=== PATIENT | female | born 1955 | race Caucasian/White ===

== ENCOUNTER 2018-05-01 10:58 | Observation (INO) ==
--- NOTE | 2018-05-01 11:13 | Emergency Department Note ---
ED Disposition Clinical Impression: Acute exacerbation of chronic obstructive airways disease, Acute and chronic respiratory failure with hypercapnia Community acquired pneumonia Qualifiers: Laterality: right Lung location: upper lobe of lung Qualified Code(s): J18.1 - Lobar pneumonia, unspecified organism Disposition: Admitted as Observation Condition on Discharge: Fair Instructions: DI for Altered Mental Status Referrals: Alejandro Figueroa MD [Primary Care Provider] - Time of Disposition: 13:10 - Critical Care Critical Care Time: No Attestation: On , the high probability of a clinically significant, sudden or life threatening deterioration of the following system(s) required my full and direct attention, intervention and personal management. The time I documented below is in addition to time spent performing reported procedures but includes the following listed in this critical care notation. Medical Decision Making - Medical Records Medical records reviewed: Yes: I reviewed the patient's medical records. - Eleno Inquiry Pt receiving controlled substance: No Eleno was queried for this patient: No Vital Signs: 05/01/18 11:01 05/01/18 11:31 05/01/18 12:01 Temperature 98.7 F Temperature Source Oral Pulse Rate [Right Radial] 76 67 75 Respiratory Rate 28 H 18 18 Blood Pressure [Right Arm] 105/61 105/61 100/61 Blood Pressure Mean [Right Arm] 75 75 74 Blood Pressure Source [Right Arm] Automatic Cuff Automatic Cuff Automatic Cuff Blood Pressure Position [Right Arm] Sitting Sitting Sitting 02 Sat by Pulse Oximetry 98 94 L 93 L Oxygen Delivery Method Nasal Cannula Nasal Cannula Nasal Cannula Oxygen Flow Rate (LPM) 3 3 05/01/18 12:46 05/01/18 13:03 Temperature Temperature Source Pulse Rate [Right Radial] 80 76 Respiratory Rate 18 20 Blood Pressure [Right Arm] 136/60 129/59 Blood Pressure Mean [Right Arm] 85 82 Blood Pressure Source [Right Arm] Automatic Cuff Automatic Cuff Blood Pressure Position [Right Arm] Sitting Sitting 02 Sat by Pulse Oximetry 94 L 90 L Oxygen Delivery Method Nasal Cannula Nasal Cannula Oxygen Flow Rate (LPM) 3 3 - Lab Data Lab results reviewed: Yes: I reviewed the patient's lab results. Lab Results 05/01/18 11:29: Specimen Source Right brachial, O2 % 28%, ABG pH 7.26 L, ABG pCO2 93.9 H, ABG pO2 67.3 L, ABG HCO3 41.2 H, ABG Total CO2 44.1 H, ABG O2 Saturation 94, ABG Base Excess 14.1 H, Aaron Test Non applicable 05/01/18 11:35: WBC 11.7 H, RBC 3.67 L, Hgb 11.5 L, Hct 39.7, MCV 108.2 H, MCH 31.4 H, MCHC 29.0 L, RDW 14.7, Plt Count 138 L, MPV 8.3, Neut % (Auto) 88.3 H, Lymph % (Auto) 6.8 L, [place] % (Auto) 3.5, Eos % (Auto) 1.1, Baso % (Auto) 0.3, Neut # (Auto) 10.3 H, Lymph # (Auto) 0.8, [place] # (Auto) 0.4, Eos # (Auto) 0.1, Baso # (Auto) 0.0, Total Counted 100, Neutrophils % (Manual) 85 H, Band Neutrophils % 2.0, Lymphocytes % (Manual) 10, Monocytes % (Manual) 3, Platelet Estimate Slight decrease, Hypochromasia 1+, Macrocytosis 2+ 05/01/18 11:35: Sodium 139, Potassium 4.7, Chloride 95 L, Carbon Dioxide 43 H*, Anion Gap 5.7, BUN 17, Creatinine 1.06 H, Estimated Creat Clear 79, Estimated GFR 53 L, Est GFR ( Amer) 64, Glucose 130 H, Calcium 8.7, Total Bilirubin 0.4, AST 15, ALT 17, Alkaline Phosphatase 131 H, Troponin I < 0.02, Total Protein 7.3, Albumin 3.2 L, Globulin 4.1 H, Albumin/Globulin Ratio 0.8 L 05/01/18 11:35: Lactic Acid 1.2 Result diagrams: 05/01/18 11:35 05/01/18 11:35 Orders (Tests/Meds): ED MEDICATIONS Generic Name Dose Route Start Last Admin Trade Name Freq PRN Reason Stop Dose Admin Levofloxacin/Dextrose 500 mg in 100 mls @ 100 mls/hr 05/01/18 13:00 Levaquin 500mg/100ml Premix IV 05/15/18 12:59 Q24H BENNY Protocol Sodium Chloride 3 ml 05/01/18 11:12 Sodium Chloride 3% 15ml Neb IH 05/31/18 11:11 ONCE PRN INDUCE SPUTUM COLLECTION Discontinued Medications Generic Name Dose Route Start Last Admin Trade Name Guido PRN Reason Stop Dose Admin Methylprednisolone Sodium Succinate 125 mg 05/01/18 12:56 Solu-Medrol 125mg/2ml Vial IM 05/01/18 12:57 ONCE ONE Methylprednisolone Sodium Succinate 125 mg 05/01/18 13:05 Solu-Medrol 125mg/2ml Vial IV 05/01/18 13:06 ONCE ONE ORDERS Category Date Time Status XR chest portable Stat Exams 05/01/18 11:12 Taken Blood Culture Stat Micro 05/01/18 11:35 Received Sputum Culture & Gram Stain Stat Micro 05/01/18 11:12 Results ABG [Arterial Blood Gas] Stat RT 05/01/18 12:38 Ordered EKG Request [ECG Request by /Sukhdeep] Stat Y 05/01/18 11:19 Ordered - Radiology Data #1 Image(s): Chest Image Reviewed: Yes I reviewed the patient's radiology results, Yes I discussed the image results w/the radiologist, Yes I have reviewed radiologist's interpretation, Yes I reviewed the patient's radiology image w/the ED provider RUL infiltrate #2 Image(s): Ankle Image Reviewed: Yes I reviewed the patient's radiology results, Yes I reviewed the patient's radiology image, Yes I discussed the image results w/the radiologist, Yes I have reviewed radiologist's interpretation, Yes I reviewed the patient's radiology image w/the ED provider Preliminary Findings: Normal/NAD - CT Data CT Scan: Head Time Received: 13:[address] Reviewed: Yes: I have reviewed the patient's CT results, I discussed the CT results w/the radiologist, I have viewed the radiologist's interpretation Preliminary Findings: Normal/NAD Altered Mental Status HPI - General Chief Complaint: Altered Mental Status Stated Complaint: soa and ams x2 days, fell off toilet Time Seen by Provider: 05/01/18 11:06 - History of Present Illness HPI narrative: Brought to the ED by EMS with history that she has been falling at least twice over the past few days and according to the Family has been disoriented as well. She has a productive cough and history of COPD and continues to smoke about a ppd. She is on home O2 at 3L/min NC and uses Nebs TID and inhalers as well. 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 She is coughing up some purulent sputum and complains of pain in her right ankle and around her navel but denies any nausea, vomiting or diarrhea. Pt is emphatic that she is a DNR - Related Data Home Medications Medication Instructions Recorded Confirmed Gabapentin [Neurontin 600mg 600 mg PO TID 05/01/18 05/01/18 tablet] Isosorbide Mononitrate [Imdur 60mg 60 mg PO DAILY 05/01/18 05/01/18 ER tablet] Metoprolol Tartrate [Lopressor 25 mg PO BID 05/01/18 05/01/18 25mg tablet] Omeprazole [Omeprazole 20mg Tab] 20 mg PO DAILY 05/01/18 05/01/18 Spironolactone 25 mg PO BID 05/01/18 05/01/18 Venlafaxine HCl [Venlafaxine HCl 75 mg PO DAILY 05/01/18 05/01/18 ER] levETIRAcetam [Levetiracetam] 500 mg PO BID 05/01/18 05/01/18 Allergies Allergy/AdvReac Type Severity Reaction Status Date / Time amoxicillin [From Augmentin] Allergy Mild NA-NAUSEA/V Verified 05/01/18 11:11 OMITING clavulanic acid Allergy Mild NA-NAUSEA/V Verified 05/01/18 11:11 [From Augmentin] OMITING clindamycin [CLINDAMYCIN] Allergy Unknown Verified 05/01/18 11:11 [facility] History I have reviewed the patient's past medical history: Yes ROS Obtained: Yes All systems reviewed & no additional complaints - Constitutional Constitutional: Reports system reviewed and no additional complaints, except as docu - ENT Ears, Nose, Mouth, and Throat: Reports system reviewed and no additional complaints, except as docu - Cardiovascular Cardiovascular: Reports system reviewed and no additional complaints, except as docu - Respiratory Respiratory: Yes as per HPI - Gastrointestinal Gastrointestingal: Reports: system reviewed and no additional complaints, except as docu, as per HPI - Musculoskeletal Musculoskeletal: Reports system reviewed and no additional complaints, except as docu, Reports as per HPI - Neurologic Neurologic: Reports system reviewed and no additional complaints, except as docu , Reports as per HPI Physical Exam - General General appearance: other (appears to be SOA and coughing a lot but is oriented to place and time at this time) - Head Head exam: atraumatic - Eye Eye exam: Present: normal appearance - Neck Neck exam: Present: normal inspection - Chest Chest inspection: Present: normal inspection - Respiratory Respiratory exam: Present: wheezes, other (? Rales in LLL) - Cardiovascular Cardiovascular exam: Present: regular rate - Abdominal Exam Abdominal exam: Present: soft - Extremities Exam Extremities exam: Present: other (bruising and swelling of right ankle) - Neurological Exam Neurological exam: Present: other (mild confusion but does know she is at this hospital)
[2018-05-01 11:47] LABS: Basophils % 0.3 % (0.1-2.0); Eosinophils # 0.1 K/mm3 (0.0-0.4); Eosinophils % 1.1 % (0.1-12.0); Hematocrit 39.7 % (37.0-47.0); Hemoglobin 11.5 g/dL (12.2-16.2); Lymphocytes # 0.8 K/mm3 (0.7-4.5); Lymphocytes % 6.8 K/mm3 (10-50); Mean Corpuscular Hemoglobin 31.4 pg (27.0-31.2); Mean Corpuscular Volume 108.2 fl (81-99); Mean Platelet Volume 8.3 fl (7.4-10.4); Monocytes # 0.4 K/mm3 (0.1-1.0); Monocytes % 3.5 % (1.7-9.3); Neutrophils # 10.3 K/mm3 (1.8-7.8); Neutrophils % 88.3 % (37.0-80.0); Platelet Count 138 K/mm3 (142-424); Red Blood Count 3.67 M/mm3 (4.20-5.40); Red Cell Distribution Width 14.7 % (11.5-17.5); White Blood Count 11.7 K/mm3 (4.8-10.8)
[2018-05-01 12:03] LABS: Alanine Aminotransferase 17 U/L (12-78); Albumin Level 3.2 gm/dL (3.4-5.0); Albumin/Globulin Ratio 0.8 (1.1-1.8); Alkaline Phosphatase 131 U/L (46-116); Anion Gap 5.7 mEq/L (5-15); Aspartate Amino Transferase 15 U/L (15-37); Bilirubin,Total 0.4 mg/dL (0.2-1.0); Blood Urea Nitrogen 17 mg/dL (7-18); Calcium 8.7 mg/dL (8.5-10.1); Chloride 95 mmol/L (98-107); Globulin 4.1 gm/dl (1.3-3.2); Glucose 130 mg/dL (74-106); Potassium 4.7 mmoL/L (3.5-5.1); Sodium 139 mmol/L (136-145); Total Protein,Serum 7.3 gm/dL (6.4-8.2)
[2018-05-01 12:05] LABS: Carbon Dioxide 43 mmol/L (21.0-32.0)
[2018-05-01 12:16] LABS: Lymphocytes % 10 % (10-50); Monocytes % 3 % (2-9); Neutrophils % 85 % (42-76); Total Cells Counted 100
[2018-05-01 12:18] LABS: Macrocytosis 2+
[2018-05-01 12:19] LABS: Hypochromasia 1+
[2018-05-01 12:27] LABS: ABG Base Excess 14.1 mmol/L (-2.4-2.3); ABG HCO3 41.2 mmhg (22.0-26.0); ABG Oxygen Saturation 94 % (90-100); ABG PH 7.26 mmol/L (7.35-7.45); ABG PO2 67.3 mmhg (80-100); ABG TCO2 44.1 mmhg (23-27)
[2018-05-01 12:31] LABS: Allen's Test Non Applicable; Oxygen 28% %
[2018-05-01 12:32] LABS: ABG PCO2 93.9 mmhg (35.0-45.0)
--- NOTE | 2018-05-01 14:22 | Pharmacy Consult Notes ---
[facility] Pharmacy VTE Monitoring - Patient Demographics Admission date: 05/01/18 Report Date: 05/01/18 Time: 14:22 Allergies/Adverse Reactions: Patient Allergies amoxicillin [From Augmentin] Allergy (Mild, Verified 05/01/18 11:11) NA-NAUSEA/VOMITING clavulanic acid [From Augmentin] Allergy (Mild, Verified 05/01/18 11:11) NA-NAUSEA/VOMITING clindamycin [CLINDAMYCIN] Allergy (Unknown, Verified 05/01/18 11:11) Height: 1.8 m Weight: 245.082 kg Patient Problems: Current Active Problems Acute exacerbation of chronic obstructive airways disease (Acute) Acute and chronic respiratory failure with hypercapnia (Acute) Community acquired pneumonia (Acute) - VTE Risk Labs: VTE Related Lab Results Hgb 11.5 g/dL (12.2-16.2) L 05/01/18 11:35 Hct 39.7 % (37.0-47.0) 05/01/18 11:35 Plt Count 138 K/mm3 (142-424) L 05/01/18 11:35 BUN 17 mg/dL (7-18) 05/01/18 11:35 Creatinine 1.06 mg/dL (0.55-1.02) H 05/01/18 11:35 Estimated Creat Clear 79 mL/min (0-300) 05/01/18 11:35 - Prophylaxis VTE Prophylaxis Ordered?: Yes Types of VTE Prophylaxis: TEDS Knee High Location of Applied Device: Bilateral Lower Extremeties - VTE Diagnosis Confirmed Treatment or plan recommended: Continue Current Treatment
[2018-05-01 15:15] LABS: ABG Base Excess 18.1 mmol/L (-2.4-2.3); ABG HCO3 43.9 mmhg (22.0-26.0); ABG Oxygen Saturation 88 % (90-100); ABG PH 7.34 mmol/L (7.35-7.45); ABG TCO2 46.5 mmhg (23-27)
[2018-05-01 15:25] LABS: Allen's Test Non Applicable; Oxygen 32% %; Tidal Volume vapothrem 40
[2018-05-01 15:26] LABS: ABG PCO2 84.1 mmhg (35.0-45.0); ABG PO2 48.6 mmhg (80-100)
--- NOTE | 2018-05-01 15:50 | History & Physical Report ---
*Admission Date: 05/01/18 <Tatiana Silva 05/01/18 16:02> *Chief complaint: SOA, cough <Tatiana Silva 05/01/18 16:02> *History of present illness: Ms. 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 She continues to smoke approx. a pack a day. She began getting more SOA 5 days ago and fell at home. She then developed a cough with green sputum. She gradually got worse and fell off of the commode today and her was unable to get her up and had to call 911. She was transported to the ER and found to have a pneumonia, hypoxia, and hypercapnia. She was admitted and started on abx and the vapotherm for CO2 retention. <Tatiana Silva 05/01/18 16:02> [facility] History Medical History: Reports:: Chronic Obstructive Pulmonary Disease (COPD), Depression, Home Oxygen, Hyperlipidemia, Hypertension, Seizures Denies:: Diabetes Mellitus Type 1, Diabetes Mellitus Type 2 <Tatiana Silva 05/01/18 16:02> Laterality Cases: Bilateral: Cataract <Tatiana Silva 05/01/18 16:02> Other Surgeries: Yes: Appendectomy, Cardiac Catheterization (normal), Cholecystectomy, Hysterectomy-Total, Tubal Ligation <Tatiana Silva 05/01/18 16:02> Comment: Breast bx, neck surgery <Tatiana Silva 05/01/18 16:02> - *Social History Smoking Status: Current every day smoker <Tatiana Silva 05/01/18 16:02> Tobacco Type: cigarettes <Tatiana Silva 05/01/18 16:02> # Packs/Day (cigarettes): 1 <Tatiana Silva 05/01/18 16:02> Alcohol Intake: never <Tatiana Silva 05/01/18 16:02> - Psychiatric History Expresses thoughts of harming self/others: None <Tatiana Silva 05/01/18 16: 02> Suicide Plan Description: No Plan <Tatiana Silva 05/01/18 16:02> Review of Systems - Constitutional Reports fatigue, Reports weakness <Tatiana Silva 05/01/18 16:02> - Eyes Denies blurry vision, Denies double vision [facility] 05/01/[facility] 16:02> - ENT Reports nasal congestion, Denies sore throat [facility]/01/18 16:02> - *Cardiovascular Denies chest pain, Denies leg swelling [facility] 05/01/18 16:02> - *Respiratory Reports chest congestion, Reports cough, Reports shortness of breath, Reports excessive phlegm production <[facility] 05/01/18 16:02> - *Gastrointestinal Denies abdominal pain, Denies loose stools, Denies nausea, Denies vomiting < [facility] 05/01/18 16:02> - *Genitourinary Denies difficulty urinating, Denies painful urination <[facility] 16:02> - *Musculoskeletal Denies joint pain, Denies body aches <[facility] 05/01/18 16:02> - *Neurologic Reports frequent falls, Reports weakness, Denies headache(s), Denies dizziness <[facility] 05/01/18 16:02> Meds Home Medications Medication Instructions Recorded Confirmed Type ALPRAZolam [Xanax 1mg tab] 1 mg PO TIDP PRN 05/01/18 05/01/18 History Gabapentin [Neurontin 600mg 600 mg PO TID 05/01/18 05/01/18 History tablet] Isosorbide Mononitrate [Imdur 60mg 60 mg PO DAILY 05/01/18 05/01/18 History ER tablet] Metoprolol Tartrate [Lopressor 25 mg PO BID 05/01/18 05/01/18 History 25mg tablet] Omeprazole [Omeprazole 20mg Tab] 20 mg PO DAILY 05/01/18 05/01/18 History Spironolactone 25 mg PO BID 05/01/18 05/01/18 History Venlafaxine HCl [Venlafaxine HCl 75 mg PO DAILY 05/01/18 05/01/18 History ER] Venlafaxine HCl [Venlafaxine HCl 150 mg PO DAILY 05/01/18 05/01/18 History ER] levETIRAcetam [Levetiracetam] 500 mg PO BID 05/01/18 05/01/18 History <CarolinaAlejandro Christian - 05/01/18 17:32> Allergies Allergy/AdvReac Type Severity Reaction Status Date / Time amoxicillin [From Augmentin] Allergy Mild NA-NAUSEA/V Verified 05/01/18 11:11 OMITING clavulanic acid Allergy Mild NA-NAUSEA/V Verified 05/01/18 11:11 [From Augmentin] OMITING clindamycin [CLINDAMYCIN] Allergy Unknown Verified 05/01/18 11:11 <CarolinaAlejandro Christian - 05/01/18 17:32> Exam Vital signs and Labs for Last 24 Hours: Temp Pulse Resp BP Pulse Ox 98.1 F 80 22 150/64 95 05/01/18 14:11 05/01/18 14:11 05/01/18 14:11 05/01/18 14:11 05/01/18 15:00 Laboratory Results - last 24 hr 05/01/18 11:29: Specimen Source Right brachial, O2 % 28%, ABG pH 7.26 L, ABG pCO2 93.9 H, ABG pO2 67.3 L, ABG HCO3 41.2 H, ABG Total CO2 44.1 H, ABG O2 Saturation 94, ABG Base Excess 14.1 H, Aaron Test Non applicable 05/01/18 11:35: WBC 11.7 H, RBC 3.67 L, Hgb 11.5 L, Hct 39.7, MCV 108.2 H, MCH 31.4 H, MCHC 29.0 L, RDW 14.7, Plt Count 138 L, MPV 8.3, Neut % (Auto) 88.3 H, Lymph % (Auto) 6.8 L, [place] % (Auto) 3.5, Eos % (Auto) 1.1, Baso % (Auto) 0.3, Neut # (Auto) 10.3 H, Lymph # (Auto) 0.8, [place] # (Auto) 0.4, Eos # (Auto) 0.1, Baso # (Auto) 0.0, Total Counted 100, Neutrophils % (Manual) 85 H, Band Neutrophils % 2.0, Lymphocytes % (Manual) 10, Monocytes % (Manual) 3, Platelet Estimate Slight decrease, Hypochromasia 1+, Macrocytosis 2+ 05/01/18 11:35: Sodium 139, Potassium 4.7, Chloride 95 L, Carbon Dioxide 43 H*, Anion Gap 5.7, BUN 17, Creatinine 1.06 H, Estimated Creat Clear 79, Estimated GFR 53 L, Est GFR ( Amer) 64, Glucose 130 H, Calcium 8.7, Total Bilirubin 0.4, AST 15, ALT 17, Alkaline Phosphatase 131 H, Troponin I < 0.02, Total Protein 7.3, Albumin 3.2 L, Globulin 4.1 H, Albumin/Globulin Ratio 0.8 L 05/01/18 11:35: Lactic Acid 1.2 05/01/18 12:38: Specimen Source Right brachial, O2 % 32%, ABG pH 7.34 L, ABG pCO2 84.1 H, ABG pO2 48.6 L, ABG HCO3 43.9 H, ABG Total CO2 46.5 H, ABG O2 Saturation 88 L, ABG Base Excess 18.1 H, Aaron Test Non applicable, Tidal Volume vapothrem 40 <Alejandro Figueroa - 05/01/18 17:32> Temp Pulse Resp BP Pulse Ox 98.1 F 80 22 150/64 85 L 05/01/18 14:11 05/01/18 14:11 05/01/18 14:11 05/01/18 14:11 05/01/18 13:54 Laboratory Results - last 24 hr 05/01/18 11:29: Specimen Source Right brachial, O2 % 28%, ABG pH 7.26 L, ABG pCO2 93.9 H, ABG pO2 67.3 L, ABG HCO3 41.2 H, ABG Total CO2 44.1 H, ABG O2 Saturation 94, ABG Base Excess 14.1 H, Aaron Test Non applicable 05/01/18 11:35: WBC 11.7 H, RBC 3.67 L, Hgb 11.5 L, Hct 39.7, MCV 108.2 H, MCH 31.4 H, MCHC 29.0 L, RDW 14.7, Plt Count 138 L, MPV 8.3, Neut % (Auto) 88.3 H, Lymph % (Auto) 6.8 L, [place] % (Auto) 3.5, Eos % (Auto) 1.1, Baso % (Auto) 0.3, Neut # (Auto) 10.3 H, Lymph # (Auto) 0.8, [place] # (Auto) 0.4, Eos # (Auto) 0.1, Baso # (Auto) 0.0, Total Counted 100, Neutrophils % (Manual) 85 H, Band Neutrophils % 2.0, Lymphocytes % (Manual) 10, Monocytes % (Manual) 3, Platelet Estimate Slight decrease, Hypochromasia 1+, Macrocytosis 2+ 05/01/18 11:35: Sodium 139, Potassium 4.7, Chloride 95 L, Carbon Dioxide 43 H*, Anion Gap 5.7, BUN 17, Creatinine 1.06 H, Estimated Creat Clear 79, Estimated GFR 53 L, Est GFR ( Amer) 64, Glucose 130 H, Calcium 8.7, Total Bilirubin 0.4, AST 15, ALT 17, Alkaline Phosphatase 131 H, Troponin I < 0.02, Total Protein 7.3, Albumin 3.2 L, Globulin 4.1 H, Albumin/Globulin Ratio 0.8 L 05/01/18 11:35: Lactic Acid 1.2 05/01/18 12:38: Specimen Source Right brachial, O2 % 32%, ABG pH 7.34 L, ABG pCO2 84.1 H, ABG pO2 48.6 L, ABG HCO3 43.9 H, ABG Total CO2 46.5 H, ABG O2 Saturation 88 L, ABG Base Excess 18.1 H, Aaron Test Non applicable, Tidal Volume vapothrem 40 <Tatiana Silva - 05/01/18 16:02> I & O for Last 24 hours: Intake & Output 04/29/18 04/30/18 05/01/18 05/02/18 11:59 11:59 11:59 11:59 Weight 200 lb 540 lb 5 oz <Alejandro Figueroa - 05/01/18 17:32> Intake & Output 04/29/18 04/30/18 05/01/18 05/02/18 11:59 11:59 11:59 11:59 Weight 200 lb 540 lb 5 oz <Tatiana Silva - 05/01/18 16:02> Microbiology Reports for the Last 24 Hours: Microbiology 05/01/18 11:12 Sputum - Expectorated Sputum Gram Stain - Final <Alejandro Figueroa - 05/01/18 17:32> Microbiology 05/01/18 11:12 Sputum - Expectorated Sputum Gram Stain - Final <Tatiana Silva - 05/01/18 16:02> - Constitutional mild distress <Tatiana Silva 05/01/18 16:02> - *Routine HEENT Exam Head: Present: normocephalic, atraumatic <Tatiana Silva 05/01/18 16:02> Eye: Present: EOMI <Tatiana Silva 05/01/18 16:02> ENT: Present: mucous membranes moist <Tatiana Silva 05/01/18 16:02> - *Routine Neck Exam Present: supple, full ROM <Tatiana Silva 05/01/18 16:02> - *Routine Respiratory Exam Present: diminished air movement. Absent: wheezes, crackles <Tatiana Silva 05/01/18 16:02> - *Routine Cardiovascular Exam Present: RRR <Tatiana Silva 05/01/18 16:02> - *Routine Abdominal Exam Present: soft, normoactive bowel sounds. Absent: tenderness <Tatiana Silva 05/01/18 16:02> - *Routine Extremities Exam Absent: edema <Tatiana Silva 05/01/18 16:02> - *Routine Skin Exam Present: ecchymosis (multiple on the arms and legs from falling) <Tatiana Silva 05/01/18 16:02> - *Routine Neurological Exam Present: alert, oriented X3 <Tatiana Silva 05/01/18 16:02> H&P: Result - Labs Labs: Short CBC 05/01/18 Range/Units 11:35 WBC 11.7 H (4.8-10.8) K/mm3 Hgb 11.5 L (12.2-16.2) g/dL Hct 39.7 (37.0-47.0) % Plt Count 138 L (142-424) K/mm3 BMP 05/01/18 11:35 Sodium 139 Potassium 4.7 Chloride 95 L Carbon Dioxide 43 H* BUN 17 Creatinine 1.06 H Glucose 130 H Calcium 8.7 Cardiac Enzymes 05/01/18 Range/Units 11:35 Troponin I < 0.02 (0.00-0.06) ng/ml Liver Function 05/01/18 Range/Units 11:35 Total Bilirubin 0.4 (0.2-1.0) mg/dL AST 15 (15-37) U/L ALT 17 (12-78) U/L Alkaline Phosphatase 131 H (46-116) U/L Albumin 3.2 L (3.4-5.0) gm/dL <CarolinaAlejandro Christian - 05/01/18 17:32> <Tatiana Silva - 05/01/18 16:02> - Impressions Head CT and ankle x-ray normal. Awaiting CXR results. <Tatiana Silva - 05/01/18 16:02> Assessment and Plan (1) Community acquired pneumonia Current visit: Yes Status: Acute Qualifiers: Laterality: right Lung location: upper lobe of lung Qualified Code(s): J18.1 - Lobar pneumonia, unspecified organism Category: Medical Code(s): J18.9 - Pneumonia, unspecified organism (2) Acute exacerbation of chronic obstructive airways disease Current visit: Yes Status: Acute Category: Medical Code(s): J44.1 - Chronic obstructive pulmonary disease with (acute) exacerbation (3) Acute and chronic respiratory failure with hypercapnia Current visit: Yes Status: Acute Category: Medical Code(s): J96.22 - Acute and chronic respiratory failure with hypercapnia (4) Hyperlipidemia Current visit: Yes Status: Chronic Category: Medical Code(s): E78.5 - Hyperlipidemia, unspecified (5) Hypertension Current visit: Yes Status: Chronic Category: Medical Code(s): I10 - Essential (primary) hypertension (6) Seizures Current visit: Yes Status: Chronic Category: Medical Code(s): R56.9 - Unspecified convulsions <Tatiana Silva - 05/01/18 15:47> (1) Community acquired pneumonia Current visit: Yes Status: Acute Qualifiers: Laterality: right Lung location: upper lobe of lung Qualified Code(s): J18.1 - Lobar pneumonia, unspecified organism Category: Medical Code(s): J18.9 - Pneumonia, unspecified organism (2) Acute exacerbation of chronic obstructive airways disease Current visit: Yes Status: Acute Category: Medical Code(s): J44.1 - Chronic obstructive pulmonary disease with (acute) exacerbation (3) Acute and chronic respiratory failure with hypercapnia Current visit: Yes Status: Acute Category: Medical Code(s): J96.22 - Acute and chronic respiratory failure with hypercapnia (4) Hyperlipidemia Current visit: Yes Status: Chronic Category: Medical Code(s): E78.5 - Hyperlipidemia, unspecified (5) Hypertension Current visit: Yes Status: Chronic Category: Medical Code(s): I10 - Essential (primary) hypertension (6) Seizures Current visit: Yes Status: Chronic Category: Medical Code(s): R56.9 - Unspecified convulsions <CarolinaAlejandro Christian - 05/01/18 17:32> - Assessment and plan all Dx Assessment and Plan for all problems:: Patient seen and examined. Reviewed ER record, labs and xray reports. As noted she has been started on steroids, antibiotics and Vapotherm. States she is feeling better and her ABG has improved some. who is at bedside agrees she seems more coherent now. Sputum culture has been obtained. Will continue per orders. Noted that she is a DNR. <Alejandro Figueroa - 05/01/18 17:32> Pt has been started on levaquin and steroids along with the vapotherm. Blood gas has improved slightly. Will continue current treatment. <Tatiana Silva - 05/01/18 16:02>
[2018-05-02 06:09] LABS: Eosinophils % 0.4 % (0.1-12.0); Hematocrit 34.8 % (37.0-47.0); Lymphocytes # 0.6 K/mm3 (0.7-4.5); Lymphocytes % 5.7 K/mm3 (10-50); Mean Corpuscular HGB Conc 29.7 g/dL (31.8-35.4); Mean Corpuscular Hemoglobin 31.2 pg (27.0-31.2); Mean Corpuscular Volume 105.1 fl (81-99); Mean Platelet Volume 8.3 fl (7.4-10.4); Monocytes # 0.2 K/mm3 (0.1-1.0); Monocytes % 2.4 % (1.7-9.3); Neutrophils # 9.3 K/mm3 (1.8-7.8); Neutrophils % 91.5 % (37.0-80.0); Platelet Count 139 K/mm3 (142-424); Red Blood Count 3.31 M/mm3 (4.20-5.40); Red Cell Distribution Width 14.9 % (11.5-17.5); White Blood Count 10.2 K/mm3 (4.8-10.8)
[2018-05-02 06:21] LABS: Hemoglobin 10.5 g/dL (12.2-16.2)
[2018-05-02 06:29] LABS: Albumin/Globulin Ratio 0.8 (1.1-1.8); Anion Gap 2.3 mEq/L (5-15); Bilirubin,Total 0.4 mg/dL (0.2-1.0); Calcium 8.6 mg/dL (8.5-10.1); Globulin 3.8 gm/dl (1.3-3.2); Potassium 4.3 mmoL/L (3.5-5.1); Total Protein,Serum 6.8 gm/dL (6.4-8.2)
--- NOTE | 2018-05-02 08:25 | Progress Note ---
<Tatiana Silva - Last Filed: 05/02/18 08:23> Internal Medicine - PN: Subj *Date: 05/02/18 *Time: 08:23 Interval history: Patient states she is feeling much better this morning. She is not as confused. Her shortness of air has improved slightly. Denies any pain. Exam Vital signs and Labs for Last 24 Hours: Temp Pulse Resp BP Pulse Ox 97.9 F 75 20 149/51 95 05/02/18 05:25 05/02/18 06:20 05/02/18 05:25 05/02/18 05:25 05/02/18 06:20 Laboratory Results - last 24 hr 05/01/18 11:29: Specimen Source Right brachial, O2 % 28%, ABG pH 7.26 L, ABG pCO2 93.9 H, ABG pO2 67.3 L, ABG HCO3 41.2 H, ABG Total CO2 44.1 H, ABG O2 Saturation 94, ABG Base Excess 14.1 H, Aaron Test Non applicable 05/01/18 11:35: WBC 11.7 H, RBC 3.67 L, Hgb 11.5 L, Hct 39.7, MCV 108.2 H, MCH 31.4 H, MCHC 29.0 L, RDW 14.7, Plt Count 138 L, MPV 8.3, Neut % (Auto) 88.3 H, Lymph % (Auto) 6.8 L, Wilkin % (Auto) 3.5, Eos % (Auto) 1.1, Baso % (Auto) 0.3, Neut # (Auto) 10.3 H, Lymph # (Auto) 0.8, Wilkin # (Auto) 0.4, Eos # (Auto) 0.1, Baso # (Auto) 0.0, Total Counted 100, Neutrophils % (Manual) 85 H, Band Neutrophils % 2.0, Lymphocytes % (Manual) 10, Monocytes % (Manual) 3, Platelet Estimate Slight decrease, Hypochromasia 1+, Macrocytosis 2+ 05/01/18 11:35: Sodium 139, Potassium 4.7, Chloride 95 L, Carbon Dioxide 43 H*, Anion Gap 5.7, BUN 17, Creatinine 1.06 H, Estimated Creat Clear 79, Estimated GFR 53 L, Est GFR ( Amer) 64, Glucose 130 H, Calcium 8.7, Total Bilirubin 0.4, AST 15, ALT 17, Alkaline Phosphatase 131 H, Troponin I < 0.02, Total Protein 7.3, Albumin 3.2 L, Globulin 4.1 H, Albumin/Globulin Ratio 0.8 L 05/01/18 11:35: Lactic Acid 1.2 05/01/18 12:38: Specimen Source Right brachial, O2 % 32%, ABG pH 7.34 L, ABG pCO2 84.1 H, ABG pO2 48.6 L, ABG HCO3 43.9 H, ABG Total CO2 46.5 H, ABG O2 Saturation 88 L, ABG Base Excess 18.1 H, Aaron Test Non applicable, Tidal Volume vapothrem 40 05/02/18 05:29: WBC 10.2, RBC 3.31 L, Hgb 10.5 L, Hct 34.8 L, MCV 105.1 H, MCH 31.2, MCHC 29.7 L, RDW 14.9, Plt Count 139 L, MPV 8.3, Neut % (Auto) 91.5 H, Lymph % (Auto) 5.7 L, Wilkin % (Auto) 2.4, Eos % (Auto) 0.4, Baso % (Auto) 0.0 L, Neut # (Auto) 9.3 H, Lymph # (Auto) 0.6 L, Wilkin # (Auto) 0.2, Eos # (Auto) 0.0, Baso # (Auto) 0.0 05/02/18 05:29: Sodium 135 L, Potassium 4.3, Chloride 97 L, Carbon Dioxide 40 H , Anion Gap 2.3 L, BUN 22 H D, Creatinine 1.04 H, Estimated Creat Clear 63, Estimated GFR 54 L, Est GFR ( Amer) 65, Glucose 126 H, Calcium 8.6, Phosphorus 2.0 L, Magnesium 2.1, Total Bilirubin 0.4, AST 19 D, ALT 18, Alkaline Phosphatase 120 H, Total Protein 6.8, Albumin 3.0 L, Globulin 3.8 H, Albumin/Globulin Ratio 0.8 L I & O for Last 24 hours: Intake & Output 04/29/18 04/30/18 05/01/18 05/02/18 11:59 11:59 11:59 11:59 Intake Total 645 / 645 Output Total 400 / 400 Balance 245 / 245 Weight 200 lb 540 lb 5 oz Microbiology Reports for the Last 24 Hours: Microbiology 05/01/18 11:12 Sputum - Expectorated Sputum Gram Stain - Final 05/01/18 11:12 Sputum - Expectorated Sputum Sputum Culture - Preliminary - Constitutional no acute distress - *Routine Respiratory Exam Present: distant breath sounds (but slightly better air movement) - *Routine Cardiovascular Exam Present: RRR - *Routine Abdominal Exam Present: soft, normoactive bowel sounds. Absent: tenderness - *Routine Extremities Exam Absent: edema Assessment and Plan (1) Community acquired pneumonia Current visit: Yes Status: Acute Qualifiers: Laterality: right Lung location: upper lobe of lung Qualified Code(s): J18.1 - Lobar pneumonia, unspecified organism Category: Medical Code(s): J18.9 - Pneumonia, unspecified organism (2) Acute exacerbation of chronic obstructive airways disease Current visit: Yes Status: Acute Category: Medical Code(s): J44.1 - Chronic obstructive pulmonary disease with (acute) exacerbation (3) Acute and chronic respiratory failure with hypercapnia Current visit: Yes Status: Acute Category: Medical Code(s): J96.22 - Acute and chronic respiratory failure with hypercapnia (4) Hyperlipidemia Current visit: Yes Status: Chronic Category: Medical Code(s): E78.5 - Hyperlipidemia, unspecified (5) Hypertension Current visit: Yes Status: Chronic Category: Medical Code(s): I10 - Essential (primary) hypertension (6) Seizures Current visit: Yes Status: Chronic Category: Medical Code(s): R56.9 - Unspecified convulsions - Assessment and plan all Dx Assessment and Plan for all problems:: Will continue vapotherm, abx, steroids, and nebs. <Alejandro Figueroa - Last Filed: 05/02/18 08:54> Internal Medicine - PN: Subj *Date: 05/02/18 *Time: 08:53 Exam Vital signs and Labs for Last 24 Hours: Temp Pulse Resp BP Pulse Ox 97.9 F 83 22 132/61 97 05/02/18 08:22 05/02/18 08:22 05/02/18 08:22 05/02/18 08:22 05/02/18 08:22 Laboratory Results - last 24 hr 05/01/18 11:29: Specimen Source Right brachial, O2 % 28%, ABG pH 7.26 L, ABG pCO2 93.9 H, ABG pO2 67.3 L, ABG HCO3 41.2 H, ABG Total CO2 44.1 H, ABG O2 Saturation 94, ABG Base Excess 14.1 H, Aaron Test Non applicable 05/01/18 11:35: WBC 11.7 H, RBC 3.67 L, Hgb 11.5 L, Hct 39.7, MCV 108.2 H, MCH 31.4 H, MCHC 29.0 L, RDW 14.7, Plt Count 138 L, MPV 8.3, Neut % (Auto) 88.3 H, Lymph % (Auto) 6.8 L, Wilkin % (Auto) 3.5, Eos % (Auto) 1.1, Baso % (Auto) 0.3, Neut # (Auto) 10.3 H, Lymph # (Auto) 0.8, Wilkin # (Auto) 0.4, Eos # (Auto) 0.1, Baso # (Auto) 0.0, Total Counted 100, Neutrophils % (Manual) 85 H, Band Neutrophils % 2.0, Lymphocytes % (Manual) 10, Monocytes % (Manual) 3, Platelet Estimate Slight decrease, Hypochromasia 1+, Macrocytosis 2+ 05/01/18 11:35: Sodium 139, Potassium 4.7, Chloride 95 L, Carbon Dioxide 43 H*, Anion Gap 5.7, BUN 17, Creatinine 1.06 H, Estimated Creat Clear 79, Estimated GFR 53 L, Est GFR ( Amer) 64, Glucose 130 H, Calcium 8.7, Total Bilirubin 0.4, AST 15, ALT 17, Alkaline Phosphatase 131 H, Troponin I < 0.02, Total Protein 7.3, Albumin 3.2 L, Globulin 4.1 H, Albumin/Globulin Ratio 0.8 L 05/01/18 11:35: Lactic Acid 1.2 05/01/18 12:38: Specimen Source Right brachial, O2 % 32%, ABG pH 7.34 L, ABG pCO2 84.1 H, ABG pO2 48.6 L, ABG HCO3 43.9 H, ABG Total CO2 46.5 H, ABG O2 Saturation 88 L, ABG Base Excess 18.1 H, Aaron Test Non applicable, Tidal Volume vapothrem 40 05/02/18 05:29: WBC 10.2, RBC 3.31 L, Hgb 10.5 L, Hct 34.8 L, MCV 105.1 H, MCH 31.2, MCHC 29.7 L, RDW 14.9, Plt Count 139 L, MPV 8.3, Neut % (Auto) 91.5 H, Lymph % (Auto) 5.7 L, Wilkin % (Auto) 2.4, Eos % (Auto) 0.4, Baso % (Auto) 0.0 L, Neut # (Auto) 9.3 H, Lymph # (Auto) 0.6 L, Wilkin # (Auto) 0.2, Eos # (Auto) 0.0, Baso # (Auto) 0.0 05/02/18 05:29: Sodium 135 L, Potassium 4.3, Chloride 97 L, Carbon Dioxide 40 H , Anion Gap 2.3 L, BUN 22 H D, Creatinine 1.04 H, Estimated Creat Clear 63, Estimated GFR 54 L, Est GFR ( Amer) 65, Glucose 126 H, Calcium 8.6, Phosphorus 2.0 L, Magnesium 2.1, Total Bilirubin 0.4, AST 19 D, ALT 18, Alkaline Phosphatase 120 H, Total Protein 6.8, Albumin 3.0 L, Globulin 3.8 H, Albumin/Globulin Ratio 0.8 L I & O for Last 24 hours: Intake & Output 04/29/18 04/30/18 05/01/18 05/02/18 11:59 11:59 11:59 11:59 Intake Total 885 / 885 Output Total 400 / 400 Balance 485 / 485 Weight 200 lb 540 lb 5 oz Microbiology Reports for the Last 24 Hours: Microbiology 05/01/18 11:12 Sputum - Expectorated Sputum Gram Stain - Final 05/01/18 11:12 Sputum - Expectorated Sputum Sputum Culture - Preliminary Assessment and Plan (1) Community acquired pneumonia Current visit: Yes Status: Acute Qualifiers: Laterality: right Lung location: upper lobe of lung Qualified Code(s): J18.1 - Lobar pneumonia, unspecified organism Category: Medical Code(s): J18.9 - Pneumonia, unspecified organism (2) Acute exacerbation of chronic obstructive airways disease Current visit: Yes Status: Acute Category: Medical Code(s): J44.1 - Chronic obstructive pulmonary disease with (acute) exacerbation (3) Acute and chronic respiratory failure with hypercapnia Current visit: Yes Status: Acute Category: Medical Code(s): J96.22 - Acute and chronic respiratory failure with hypercapnia (4) Hyperlipidemia Current visit: Yes Status: Chronic Category: Medical Code(s): E78.5 - Hyperlipidemia, unspecified (5) Hypertension Current visit: Yes Status: Chronic Category: Medical Code(s): I10 - Essential (primary) hypertension (6) Seizures Current visit: Yes Status: Chronic Category: Medical Code(s): R56.9 - Unspecified convulsions - Assessment and plan all Dx Assessment and Plan for all problems:: Patient is seen and examined. Clinically improving. SHe wants to go home ( probably to smoke) but recommend she stay for continued treatment. SHe is agreeable.
[2018-05-02 09:06] LABS: Lymphocytes % 5 % (10-50); Macrocytosis 1+; Monocytes % 2 % (2-9); Neutrophils % 93 % (42-76); Total Cells Counted 100
[2018-05-02 09:08] LABS: Hypochromasia 1+
[2018-05-03 08:11] VITALS: BP 157/80
--- NOTE | 2018-05-03 09:14 | Progress Note ---
Internal Medicine - PN: Subj *Date: 05/03/18 *Time: 09:12 Interval history: She was weaned from the Vapotherm last night and has been on 3 L of nasal oxygen all through the night with sats consistently above 90%. She slept well through the night and feels much better this morning with less shortness of breath. She has only minimal cough. She is tolerating her diet. She has been up and about the room. She is eager to go home. Exam Vital signs and Labs for Last 24 Hours: Temp Pulse Resp BP Pulse Ox 98.4 F 80 20 157/80 95 05/03/18 08:00 05/03/18 08:00 05/03/18 08:00 05/03/18 08:00 05/03/18 08:00 I & O for Last 24 hours: Intake & Output 04/30/18 05/01/18 05/02/18 05/03/18 11:59 11:59 11:59 11:59 Intake Total 885 / 885 1006 / 1006 Output Total 400 / 400 2500 / 2500 Balance 485 / 485 -1494 / -1494 Weight 200 lb 540 lb 5 oz 240 lb 9 oz Microbiology Reports for the Last 24 Hours: Microbiology 05/01/18 11:12 Sputum - Expectorated Sputum Gram Stain - Final 05/01/18 11:12 Sputum - Expectorated Sputum Sputum Culture - Final Normal Respiratory Adina Narrative: She is alert and oriented. No respiratory distress. Color is normal. Chest reveals generally diminished breath sounds with a few faint wheezes. No rales or rhonchi. Extremities no edema. Assessment and Plan (1) Community acquired pneumonia Current visit: Yes Status: Acute Qualifiers: Laterality: right Lung location: upper lobe of lung Qualified Code(s): J18.1 - Lobar pneumonia, unspecified organism Category: Medical Code(s): J18.9 - Pneumonia, unspecified organism (2) Acute exacerbation of chronic obstructive airways disease Current visit: Yes Status: Acute Category: Medical Code(s): J44.1 - Chronic obstructive pulmonary disease with (acute) exacerbation (3) Acute and chronic respiratory failure with hypercapnia Current visit: Yes Status: Acute Category: Medical Code(s): J96.22 - Acute and chronic respiratory failure with hypercapnia (4) Hyperlipidemia Current visit: Yes Status: Chronic Category: Medical Code(s): E78.5 - Hyperlipidemia, unspecified (5) Hypertension Current visit: Yes Status: Chronic Category: Medical Code(s): I10 - Essential (primary) hypertension (6) Seizures Current visit: Yes Status: Chronic Category: Medical Code(s): R56.9 - Unspecified convulsions - Assessment and plan all Dx Assessment and Plan for all problems:: She is stable to be discharged home. She will continue on p.o. Levaquin and will be given a prescription for Medrol Dosepak. She will follow-up in the office for recheck in 5 days.
--- NOTE | 2018-05-05 11:31 | Discharge Summary ---
General - General Admission date:: 05/01/18 <Alejandro Figueroa - 05/22/18 13:58> 05/01/18 <Tatiana Silva - 05/05/18 11:31> Discharge date: 05/03/18 <Tatiana Silva - 05/05/18 11:31> HPI HPI: Ms. 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 She continues to smoke approx. a pack a day. She began getting more SOA 5 days ago and fell at home. She then developed a cough with green sputum. She gradually got worse and fell off of the commode today and her was unable to get her up and had to call 911. She was transported to the ER and found to have a pneumonia, hypoxia, and hypercapnia. She was admitted and started on abx and the vapotherm for CO2 retention. <Tatiana Silva - 05/05/18 11:31> Hospital Course Hospital Course: The patient was started on levaquin and steroids along with the vapotherm. Her CXR showed a RUL pneumonia. Her blood gas improved on the vapotherm. By the next day she was feeling much better. Her AMS had resolved. She was able to be weaned from the Vapotherm onto 3 L of nasal oxygen with sats consistently above 90%. She began sleeping well and eating. She had less shortness of breath. She was eager to go home. She was stable to be discharged on Levaquin and was given a prescription for a Medrol Dosepak. She will follow-up in the office for recheck in 5 days. <Tatiana Silva - 05/05/18 11:31> Objective Vital signs: Temp Pulse Resp BP Pulse Ox 98.4 F 80 20 157/80 95 05/03/18 08:00 05/03/18 08:00 05/03/18 08:00 05/03/18 08:00 05/03/18 08:00 <CarolinaAlejandro minor Christian - 05/22/18 13:58> Temp Pulse Resp BP Pulse Ox 98.4 F 80 20 157/80 95 05/03/18 08:00 05/03/18 08:00 05/03/18 08:00 07/14/18 08:00 05/03/18 08:00 <Tatiana Silva 05/05/18 11:31> Narrative: - Constitutional mild distress - *Routine HEENT Exam Head: Present: normocephalic, atraumatic Eye: Present: EOMI ENT: Present: mucous membranes moist - *Routine Neck Exam Present: supple, full ROM - *Routine Respiratory Exam Present: diminished air movement. Absent: wheezes, crackles - *Routine Cardiovascular Exam Present: RRR - *Routine Abdominal Exam Present: soft, normoactive bowel sounds. Absent: tenderness - *Routine Extremities Exam Absent: edema - *Routine Skin Exam Present: ecchymosis (multiple on the arms and legs from falling) - *Routine Neurological Exam Present: alert, oriented X3 <Tatiana Silva 05/05/18 11:31> Results Labs on day of discharge: Preliminary micro results at discharge 05/01/18 11:35 Blood Culture - Preliminary Blood NO GROWTH AFTER 48 HOURS 05/01/18 11:12 Blood Culture - Preliminary Blood NO GROWTH AFTER 48 HOURS <Tatiana Silva 05/05/18 11:31> DS: Diagnosis - Discharge Diagnosis (1) Community acquired pneumonia Status: Acute (2) Acute exacerbation of chronic obstructive airways disease Status: Acute (3) Acute and chronic respiratory failure with hypercapnia Status: Acute (4) Hyperlipidemia Status: Chronic (5) Hypertension Status: Chronic (6) Seizures Status: Chronic <Tatiana Silva 05/05/18 11:25> (1) Community acquired pneumonia Status: Acute (2) Acute exacerbation of chronic obstructive airways disease Status: Acute (3) Acute and chronic respiratory failure with hypercapnia Status: Acute (4) Hyperlipidemia Status: Chronic (5) Hypertension Status: Chronic (6) Seizures Status: Chronic <Alejandro Figueroa - 05/22/18 13:58> Discharge Plan - Patient Discharge Instructions ACTIVITY: Continue current activity <Tatiana Silva 05/05/18 11:31> DIET: continue same diet <Tatiana Silva 05/05/18 11:31> Patient Instructions: Pneumonia-Adult, DI for Chronic Obstructive Pulmonary Disease, Respiratory Failure <Alejandro Figueroa - 05/22/18 13:58> Forms: <Alejandro Figueroa - 05/22/18 13:58> - Follow up Plan Follow up with: Alejandro Figueroa MD [Primary Care Provider] - 05/08/18 <Alejandro Figueroa - 05/22/18 13:58> Disposition: Home, Self-Care <Alejandro Figueroa - 05/22/18 13:58> Home Medications: Home Medications Medication Instructions Recorded Confirmed Type ALPRAZolam [Xanax 1mg tab] 1 mg PO TIDP PRN 05/01/18 05/01/18 History Gabapentin [Neurontin 600mg 600 mg PO TID 05/01/18 05/01/18 History tablet] Isosorbide Mononitrate [Imdur 60mg 60 mg PO DAILY 05/01/18 05/01/18 History ER tablet] Metoprolol Tartrate [Lopressor 25 mg PO BID 05/01/18 05/01/18 History 25mg tablet] Omeprazole [Omeprazole 20mg Tab] 20 mg PO DAILY 05/01/18 05/01/18 History Spironolactone 25 mg PO BID 05/01/18 05/01/18 History Venlafaxine HCl [Venlafaxine HCl 75 mg PO DAILY 05/01/18 05/01/18 History ER] Venlafaxine HCl [Venlafaxine HCl 150 mg PO DAILY 05/01/18 05/01/18 History ER] levETIRAcetam [Levetiracetam] 500 mg PO BID 05/01/18 05/01/18 History <Alejandro Figueroa - 05/22/18 13:58> Prescriptions/Medication Reconciliation: New methylPREDNISolone [Medrol] 4 mg PO DIRECTED #1 tab.ds.pk levoFLOXacin [Levaquin 750mg tablet] 750 mg PO DAILY #5 tab Continue Gabapentin [Neurontin 600mg tablet] 600 mg PO TID Isosorbide Mononitrate [Imdur 60mg ER tablet] 60 mg PO DAILY levETIRAcetam [Levetiracetam] 500 mg PO BID Metoprolol Tartrate [Lopressor 25mg tablet] 25 mg PO BID Omeprazole [Omeprazole 20mg Tab] 20 mg PO DAILY Venlafaxine HCl [Venlafaxine HCl ER] 75 mg PO DAILY Spironolactone 25 mg PO BID Venlafaxine HCl [Venlafaxine HCl ER] 150 mg PO DAILY ALPRAZolam [Xanax 1mg tab] 1 mg PO TIDP PRN PRN Reason: Anxiety <Alejandro Figueroa - 05/22/18 13:58> - Additional Information Additional Information: Concur with assessment and plan for discharge. <Alejandro Figueroa - 05/22/18 13:58>
== END 2018-05-03 11:50 | disposition home or self-care (01) ==
LOC: ER 10:58 → 2ND 10:58
PROVIDERS: ADMIT Family Medicine; ATTEND Family Medicine

== ENCOUNTER 2018-06-05 10:27 | Inpatient (IN) ==
--- NOTE | 2018-06-05 10:56 | Emergency Department Note ---
ED Disposition Clinical Impression: COPD (chronic obstructive pulmonary disease), Tobacco abuse disorder, Hypertension, Non-compliance, DNR (do not resuscitate), Hypercarbia, COPD with acute exacerbation Disposition: Still a Patient Condition on Discharge: Fair Referrals: Alejandro Figueroa MD [Primary Care Provider] - - Critical Care Critical Care Time: No Attestation: On , the high probability of a clinically significant, sudden or life threatening deterioration of the following system(s) required my full and direct attention, intervention and personal management. The time I documented below is in addition to time spent performing reported procedures but includes the following listed in this critical care notation. Medical Decision Making - Eleno Inquiry Pt receiving controlled substance: No Eleno was queried for this patient: No Vital Signs: 06/05/18 10:27 06/05/18 10:57 06/05/18 11:00 Temperature 99.1 F Temperature Source Oral Pulse Rate 79 Pulse Rate [Left Radial] 77 77 Respiratory Rate 22 20 Blood Pressure [Right Arm] 150/68 150/77 Blood Pressure Mean [Right Arm] 95 101 Blood Pressure Source [Right Arm] Automatic Cuff Automatic Cuff Blood Pressure Position [Right Arm] Sitting Sitting 02 Sat by Pulse Oximetry 99 95 98 Oxygen Delivery Method Nasal Cannula Nasal Cannula Oxygen Flow Rate (LPM) 2 2 - Lab Data Lab Results 06/05/18 10:45: WBC 12.0 H, RBC 3.17 L, Hgb 10.5 L, Hct 33.6 L, MCV 105.9 H, MCH 33.0 H, MCHC 31.1 L, RDW 16.0, Plt Count 195, MPV 8.2, Neut % (Auto) 84.9 H , Lymph % (Auto) 9.2 L, [place] % (Auto) 4.0, Eos % (Auto) 1.7, Baso % (Auto) 0.1, Neut # (Auto) 10.2 H, Lymph # (Auto) 1.1, [place] # (Auto) 0.5, Eos # (Auto) 0.2, Baso # (Auto) 0.0 06/05/18 10:45: Lactate 0.7 06/05/18 10:45: B-Natriuretic Peptide 177 H 06/05/18 11:21: Specimen Source Right radial, O2 % 28%, ABG pH 7.37, ABG pCO2 73.8 H, ABG pO2 92.7, ABG HCO3 41.3 H, ABG Total CO2 43.6 H, ABG O2 Saturation 98, ABG Base Excess 16.0 H, Aaron Test Acceptable Result diagrams: 06/05/18 10:45 Orders (Tests/Meds): ED MEDICATIONS Discontinued Medications Generic Name Dose Route Start Last Admin Trade Name Guido PRN Reason Stop Dose Admin Albuterol/Ipratropium 3 ml 06/05/18 10:38 06/05/18 10:49 Duoneb 3ml Neb IH 06/05/18 10:39 3 ml ONCE ONE Administration Methylprednisolone Sodium Succinate 125 mg 06/05/18 10:39 06/05/18 10:49 Solu-Medrol 125mg/2ml Vial IV 06/05/18 10:40 125 mg ONCE ONE Administration ORDERS Category Date Time Status XR chest 2V Stat Exams 06/05/18 10:38 Taken Cardiac Enzymes Stat Lab 06/05/18 11:20 Received Comprehensive Metabolic Panel Stat Lab 06/05/18 11:20 Received Blood Culture Stat Micro 06/05/18 10:45 Received ECG Request by /Sukhdeep Stat Y 06/05/18 10:39 Ordered - ECG Data Tracing #1 Normal sinus rhythm 74 minute baseline artifact no acute findings. ECG initial impression date: 06/05/18 ECG initial impression time: 10:55 Medical Decision Narrative: After reviewing her blood gases I offered the patient BiPAP and she declined, did the same in the previous admission. I spoke with her primary care physician Dr. Figueroa and he agreed to admit her for COPD exacerbation with hypercarbia. Atypical chest pain rule out AL protocol. Allergic to amoxicillin and she will start on Levaquin. Resp/SOB HPI - General Chief Complaint: Shortness of Breath/Dyspnea Stated Complaint: SOA Time Seen by Provider: 06/05/18 10:30 Mode of Arrival: EMS Limitations: No Limitations Description of Symptoms (Recalled from ER Triage Doc. by RN): Pt states that she was feeling SOA last night and this morning she started to feel worse. States she was seen one month ago for PNA and states this feels the same. One moment of chest pain on the way to the hospital that was located in left chest only denies pain radiating anywheres else at this time - History of Present Illness 63 years old white female chronic smoker on steroids antibiotics and home oxygen.She does have hypertension.Since her last admission 4 weeks ago, she has been experiencing progressive shortness of breath. Today she suffered chest pressure that lasted for 10 minutes and resolved spontaneously. She denies having fever chills productive sputum. She denies nausea vomiting diarrhea. She denies leg edema. She denies having epistaxis hemoptysis hematemesis coffee -ground emesis stool or bleeding per rectum. She did have cardiac catheterization at [facility] 5 years ago which was negative for coronary artery disease, she wishes to be DNR. MD Complaint: shortness of breath Onset (ago): week(s) (4 weeks.) Severity: moderate Consistency/Duration: constant Relieving factors: rest Exacerbating factors: exertion Known history of: COPD Associated symptoms: chest pain Treatment prior to arrival: none - Related Data Home Medications Medication Instructions Recorded Confirmed ALPRAZolam [Xanax 1mg tab] 1 mg PO TIDP PRN 05/01/18 06/05/18 Gabapentin [Neurontin 600mg 600 mg PO TID 05/01/18 06/05/18 tablet] Isosorbide Mononitrate [Imdur 60mg 60 mg PO DAILY 05/01/18 06/05/18 ER tablet] Metoprolol Tartrate [Lopressor 25 mg PO BID 05/01/18 06/05/18 25mg tablet] Omeprazole [Omeprazole 20mg Tab] 20 mg PO DAILY 05/01/18 06/05/18 Spironolactone 25 mg PO BID 05/01/18 06/05/18 Venlafaxine HCl [Venlafaxine HCl 75 mg PO DAILY 05/01/18 06/05/18 ER] Venlafaxine HCl [Venlafaxine HCl 150 mg PO DAILY 05/01/18 06/05/18 ER] levETIRAcetam [Levetiracetam] 500 mg PO BID 05/01/18 06/05/18 Allergies Allergy/AdvReac Type Severity Reaction Status Date / Time amoxicillin [From Augmentin] Allergy Mild NA-NAUSEA/V Verified 05/01/18 11:11 OMITING clavulanic acid Allergy Mild NA-NAUSEA/V Verified 05/01/18 11:11 [From Augmentin] OMITING clindamycin [CLINDAMYCIN] Allergy Unknown Verified 05/01/18 11:11 [facility] History I have reviewed the patient's past medical history: Yes Medical History: Reports:: Chronic Obstructive Pulmonary Disease (COPD), Depression, Home Oxygen, Hyperlipidemia, Hypertension, Seizures Denies:: Diabetes Mellitus Type 1, Diabetes Mellitus Type 2 Other Surgeries: Yes: Appendectomy, Cardiac Catheterization (normal), Cholecystectomy, Hysterectomy-Total, Tubal Ligation Comment: Breast bx, neck surgery - Social History Smoking Status: Current every day smoker Tobacco Type: cigarettes # Packs/Day (cigarettes): 1 #Yrs smoked (if former smoker): 50 Alcohol Intake: never Occupational Status: disabled Household Members: spouse - Psychiatric History Expresses thoughts of harming self/others: None Suicide Plan Description: No Plan Pschychiatric History:: Reports:: Depression ROS Obtained: Yes All systems reviewed & no additional complaints Physical Exam - General General appearance: alert, in no apparent distress - Head Head exam: atraumatic, normocephalic, normal inspection - Eye Eye exam: Present: normal appearance, PERRL, EOMI. Absent: scleral icterus, jaundice - ENT ENT exam: Present: normal exam, normal oropharynx, mucous membranes moist, TM's normal bilaterally, normal external ear exam - Neck Neck exam: Present: normal inspection, full ROM, trachea midline. Absent: tenderness, meningismus, lymphadenopathy - Chest Chest inspection: Present: normal inspection, symmetric chest wall rise. Absent : tenderness - Respiratory Respiratory exam: Present: normal lung sounds bilaterally, other (Decreased air entry bilaterally. ). Absent: respiratory distress, wheezes - Cardiovascular Cardiovascular exam: Present: regular rate, normal rhythm. Absent: JVD - Abdominal Exam Abdominal exam: Present: soft, normal bowel sounds. Absent: distention, tenderness, guarding, rebound, rigidity - External exam: Present: normal external exam - Extremities Exam Extremities exam: Present: normal inspection, full ROM, normal capillary refill. Absent: calf tenderness - Back Exam Back exam: Present: normal inspection. Absent: tenderness, CVA tenderness (R), CVA tenderness (L) - Neurological Exam Neurological exam: Present: alert, oriented X3, CN II-XII intact, motor sensory deficit, reflexes normal - Psychiatric Psychiatric exam: Present: normal affect, normal mood - Skin Skin exam: Present: warm, dry, intact, normal color - Lymphatic Lymphatic Findings: no adenopathy
[2018-06-05 10:58] LABS: Basophils % 0.1 % (0.1-2.0); Eosinophils # 0.2 K/mm3 (0.0-0.4); Eosinophils % 1.7 % (0.1-12.0); Hematocrit 33.6 % (37.0-47.0); Hemoglobin 10.5 g/dL (12.2-16.2); Lymphocytes # 1.1 K/mm3 (0.7-4.5); Lymphocytes % 9.2 K/mm3 (10-50); Mean Corpuscular HGB Conc 31.1 g/dL (31.8-35.4); Mean Corpuscular Volume 105.9 fl (81-99); Mean Platelet Volume 8.2 fl (7.4-10.4); Monocytes # 0.5 K/mm3 (0.1-1.0); Neutrophils # 10.2 K/mm3 (1.8-7.8); Neutrophils % 84.9 % (37.0-80.0); Platelet Count 195 K/mm3 (142-424); Red Blood Count 3.17 M/mm3 (4.20-5.40)
[2018-06-05 11:26] LABS: ABG HCO3 41.3 mmhg (22.0-26.0); ABG Oxygen Saturation 98 % (90-100); ABG PH 7.37 mmol/L (7.35-7.45); ABG PO2 92.7 mmhg (80-100); ABG TCO2 43.6 mmhg (23-27)
[2018-06-05 11:29] LABS: Allen's Test Acceptable; Oxygen 28% %
[2018-06-05 11:32] LABS: ABG PCO2 73.8 mmhg (35.0-45.0)
[2018-06-05 11:53] LABS: Alanine Aminotransferase 15 U/L (12-78); Albumin Level 2.6 gm/dL (3.4-5.0); Albumin/Globulin Ratio 0.7 (1.1-1.8); Alkaline Phosphatase 101 U/L (46-116); Anion Gap 1.7 mEq/L (5-15); Aspartate Amino Transferase 13 U/L (15-37); Bilirubin,Total 0.5 mg/dL (0.2-1.0); Blood Urea Nitrogen 13 mg/dL (7-18); Calcium 8.2 mg/dL (8.5-10.1); Carbon Dioxide 45 mmol/L (21.0-32.0); Chloride 98 mmol/L (98-107); Creatine Kinase 29 U/L (26-192); Globulin 3.9 gm/dl (1.3-3.2); Glucose 96 mg/dL (74-106); Potassium 4.7 mmoL/L (3.5-5.1); Sodium 140 mmol/L (136-145); Total Protein,Serum 6.5 gm/dL (6.4-8.2)
--- NOTE | 2018-06-05 13:00 | Pharmacy Consult Notes ---
[facility] Pharmacy VTE Monitoring - Patient Demographics Admission date: 06/05/18 Report Date: 06/05/18 Time: 13:00 Allergies/Adverse Reactions: Patient Allergies amoxicillin [From Augmentin] Allergy (Mild, Verified 05/01/18 11:11) NA-NAUSEA/VOMITING clavulanic acid [From Augmentin] Allergy (Mild, Verified 05/01/18 11:11) NA-NAUSEA/VOMITING clindamycin [CLINDAMYCIN] Allergy (Unknown, Verified 05/01/18 11:11) Height: 1.8 m Weight: 81.193 kg Patient Problems: Current Active Problems Hypertension (Chronic) COPD (chronic obstructive pulmonary disease) (Acute) Tobacco abuse disorder (Acute) Non-compliance (Acute) DNR (do not resuscitate) (Acute) Hypercarbia (Acute) COPD with acute exacerbation (Acute) - VTE Risk Labs: VTE Related Lab Results Hgb 10.5 g/dL (12.2-16.2) L 06/05/18 10:45 Hct 33.6 % (37.0-47.0) L 06/05/18 10:45 Plt Count 195 K/mm3 (142-424) 06/05/18 10:45 BUN 13 mg/dL (7-18) 06/05/18 11:20 Creatinine 1.05 mg/dL (0.55-1.02) H 06/05/18 11:20 Estimated Creat Clear 71 mL/min (0-300) 06/05/18 11:20 - Prophylaxis VTE Prophylaxis Ordered?: Yes Types of VTE Prophylaxis: TEDS Knee High Location of Applied Device: Bilateral Lower Extremeties - VTE Diagnosis Confirmed Treatment or plan recommended: Continue Current Treatment
--- NOTE | 2018-06-05 14:34 | History & Physical Report ---
*Admission Date: 06/05/18 <Tatiana Silva 06/05/18 14:35> *Chief complaint: Shortness of Breath <Tatiana Silva 06/05/18 14:44> *History of present illness: Ms. Gamez is a 63 year old white female with chronic COPD who presented to the ER with SOA. Her states she has not done well at home since her discharge from the hospital in April for a COPD exacerbation wit hypercapnia. He states she normally stays on 3L of oxygen at home and uses her duonebs. Yesterday she began getting confused and felt like she was smothering, so they turned her oxygen up to 4L. This did not help, therefore she was brought to the ER for evaluation. She denies having fever, chills, or productive sputum. She denies nausea, vomiting, or diarrhea. She denies leg edema. She was found to have hypercapnia and was admitted and placed on the vapotherm. She did have cardiac catheterization at [facility] 5 years ago which was negative for coronary artery disease. Of note, she is a DNR. <Tatiana Silva 06/05/18 14:44> [facility] History Medical History: Reports:: Chronic Obstructive Pulmonary Disease (COPD), Depression, Home Oxygen, Hyperlipidemia, Hypertension, Seizures Denies:: Cancer, Diabetes Mellitus Type 1, Diabetes Mellitus Type 2, MRSA < Tatiana Silva 06/05/18 14:35> Other Surgeries: Yes: Appendectomy, Cardiac Catheterization (normal), Cholecystectomy, Hysterectomy-Total, Tubal Ligation <Tatiana Silva 06/05/18 14:35> Amputation: No <Tatiana Silva 06/05/18 14:35> Fractures: No <Tatiana Silva 06/05/18 14:35> - *Social History Educational Level: Completed College <Tatiana Silva 06/05/18 14:35> Smoking Status: Current every day smoker <Tatiana Silva 06/05/18 14:35> Tobacco Type: cigarettes <Tatiana Silva 06/05/18 14:35> # Packs/Day (cigarettes): 1 <Tatiana Silva 06/05/18 14:35> #Yrs smoked (if former smoker): 50 <Tatiana Silva 06/05/18 14:35> Alcohol Intake: never <Tatiana Silva 06/05/18 14:35> Occupational Status: disabled <Tatiana Silva 06/05/18 14:35> Housing: house <aTtiana Silva 06/05/18 14:35> Household Members: spouse <Tatiana Silva 06/05/18 14:35> - Psychiatric History Expresses thoughts of harming self/others: None <Tatiana Silva 06/05/18 14: 35> Suicide Plan Description: No Plan <Tatiana Silva 06/05/18 14:35> Pschychiatric History:: Reports:: Depression <Tatiana Silva 06/05/18 14:35> *Family Hx:: Cancer, Coronary Artery Disease, Hypertension <Tatiana Silva 14:44> Review of Systems - Constitutional Reports fatigue, Reports lack of energy <JuanbertTatiana 06/05/18 14:44> - Eyes Denies blurry vision, Denies double vision <RicardoTatiana 06/05/18 14:44> - ENT Reports nasal congestion, Denies sore throat <Josr Silvaa 06/05/18 14:44> - *Cardiovascular Denies chest pain, Denies irregular heart rhythm <Josr Silvaa 06/05/18 14: 44> - *Respiratory Reports cough, Reports shortness of breath <Josr Silvaa 06/05/18 14:44> - *Gastrointestinal Denies abdominal pain, Denies loose stools, Denies nausea, Denies vomiting < JuanbertTatiana 06/05/18 14:44> - *Genitourinary Denies difficulty urinating, Denies painful urination <RicardoTatiana 14:44> - *Musculoskeletal Denies joint pain <RicardoTatiana 06/05/18 14:44> - *Neurologic Reports weakness, Denies headache(s), Denies seizure-like activity, Denies dizziness <JuanbertTatiana 06/05/18 14:44> Meds Home Medications Medication Instructions Recorded Confirmed Type ALPRAZolam [Xanax 1mg tab] 1 mg PO TIDP PRN 05/01/18 06/05/18 History Gabapentin [Neurontin 600mg 600 mg PO TID 05/01/18 06/05/18 History tablet] Isosorbide Mononitrate [Imdur 60mg 60 mg PO DAILY 05/01/18 06/05/18 History ER tablet] Metoprolol Tartrate [Lopressor 25 mg PO BID 05/01/18 06/05/18 History 25mg tablet] Omeprazole [Omeprazole 20mg Tab] 20 mg PO DAILY 05/01/18 06/05/18 History Spironolactone 25 mg PO BID 05/01/18 06/05/18 History Venlafaxine HCl [Venlafaxine HCl 75 mg PO DAILY 05/01/18 06/05/18 History ER] Venlafaxine HCl [Venlafaxine HCl 150 mg PO DAILY 05/01/18 06/05/18 History ER] levETIRAcetam [Levetiracetam] 500 mg PO BID 05/01/18 06/05/18 History Azithromycin [Zithromax 250mg 250 mg PO MOWEFR 06/05/18 06/05/18 History tab] Benzonatate [Benzonatate 200mg Cap] 200 mg PO TIDP PRN 06/05/18 06/05/18 History Fluticasone/Vilanterol [Breo 1 puff IH DAILY 06/05/18 06/05/18 History Ellipta 100-25 Mcg INH] Ipratropium/Albuterol Sulfate 3 ml IH QID 06/05/18 06/05/18 History [Duoneb 3mL neb] Umeclidinium [place] [Incruse 1 puff IH DAILY 06/05/18 06/05/18 History Ellipta] Varenicline Tartrate [Chantix 1mg 1 mg PO BID 06/05/18 06/05/18 History tablet] buPROPion HCl [Bupropion HCl Sr] 150 mg PO BID 06/05/18 06/05/18 History <Alejandro Figueroa - 06/05/18 17:30> Allergies Allergy/AdvReac Type Severity Reaction Status Date / Time amoxicillin [From Augmentin] Allergy Mild NA-NAUSEA/V Verified 05/01/18 11:11 OMITING clavulanic acid Allergy Mild NA-NAUSEA/V Verified 05/01/18 11:11 [From Augmentin] OMITING clindamycin [CLINDAMYCIN] Allergy Unknown Verified 05/01/18 11:11 <Alejandro Figueroa - 06/05/18 17:30> Exam Vital signs and Labs for Last 24 Hours: Temp Pulse Resp BP Pulse Ox 98.9 F 78 22 154/78 94 L 06/05/18 12:57 06/05/18 12:57 06/05/18 12:57 06/05/18 12:57 06/05/18 13:31 Laboratory Results - last 24 hr 06/05/18 10:45: WBC 12.0 H, RBC 3.17 L, Hgb 10.5 L, Hct 33.6 L, MCV 105.9 H, MCH 33.0 H, MCHC 31.1 L, RDW 16.0, Plt Count 195, MPV 8.2, Neut % (Auto) 84.9 H , Lymph % (Auto) 9.2 L, [place] % (Auto) 4.0, Eos % (Auto) 1.7, Baso % (Auto) 0.1, Neut # (Auto) 10.2 H, Lymph # (Auto) 1.1, [place] # (Auto) 0.5, Eos # (Auto) 0.2, Baso # (Auto) 0.0 06/05/18 10:45: Lactate 0.7 06/05/18 10:45: B-Natriuretic Peptide 177 H 06/05/18 11:20: Sodium 140, Potassium 4.7, Chloride 98, Carbon Dioxide 45 H*, Anion Gap 1.7 L, BUN 13, Creatinine 1.05 H, Estimated Creat Clear 71, Estimated GFR 53 L, Est GFR ( Amer) 64, Glucose 96, Calcium 8.2 L, Total Bilirubin 0.5, AST 13 L, ALT 15, Alkaline Phosphatase 101, Total Creatine Kinase 29, CK- MB (CK-2) 1.8, CK-MB (CK-2) Rel Index 6.2 H, Troponin I < 0.02, Total Protein 6.5, Albumin 2.6 L, Globulin 3.9 H, Albumin/Globulin Ratio 0.7 L 06/05/18 11:21: Specimen Source Right radial, O2 % 28%, ABG pH 7.37, ABG pCO2 73.8 H, ABG pO2 92.7, ABG HCO3 41.3 H, ABG Total CO2 43.6 H, ABG O2 Saturation 98, ABG Base Excess 16.0 H, Aaron Test Acceptable 06/05/18 16:31: POC Glucose 204 H <Alejandro Figueroa - 06/05/18 17:30> Temp Pulse Resp BP Pulse Ox 98.9 F 78 22 154/78 94 L 06/05/18 12:57 06/05/18 12:57 06/05/18 12:57 06/05/18 12:57 06/05/18 13:31 Laboratory Results - last 24 hr 06/05/18 10:45: WBC 12.0 H, RBC 3.17 L, Hgb 10.5 L, Hct 33.6 L, MCV 105.9 H, MCH 33.0 H, MCHC 31.1 L, RDW 16.0, Plt Count 195, MPV 8.2, Neut % (Auto) 84.9 H , Lymph % (Auto) 9.2 L, [place] % (Auto) 4.0, Eos % (Auto) 1.7, Baso % (Auto) 0.1, Neut # (Auto) 10.2 H, Lymph # (Auto) 1.1, [place] # (Auto) 0.5, Eos # (Auto) 0.2, Baso # (Auto) 0.0 06/05/18 10:45: Lactate 0.7 06/05/18 10:45: B-Natriuretic Peptide 177 H 06/05/18 11:20: Sodium 140, Potassium 4.7, Chloride 98, Carbon Dioxide 45 H*, Anion Gap 1.7 L, BUN 13, Creatinine 1.05 H, Estimated Creat Clear 71, Estimated GFR 53 L, Est GFR ( Amer) 64, Glucose 96, Calcium 8.2 L, Total Bilirubin 0.5, AST 13 L, ALT 15, Alkaline Phosphatase 101, Total Creatine Kinase 29, CK- MB (CK-2) 1.8, CK-MB (CK-2) Rel Index 6.2 H, Troponin I < 0.02, Total Protein 6.5, Albumin 2.6 L, Globulin 3.9 H, Albumin/Globulin Ratio 0.7 L 06/05/18 11:21: Specimen Source Right radial, O2 % 28%, ABG pH 7.37, ABG pCO2 73.8 H, ABG pO2 92.7, ABG HCO3 41.3 H, ABG Total CO2 43.6 H, ABG O2 Saturation 98, ABG Base Excess 16.0 H, Aaron Test Acceptable <Tatiana Silva 06/05/18 14:44> I & O for Last 24 hours: Intake & Output 06/03/18 06/04/18 06/05/18 06/06/18 11:59 11:59 11:59 11:59 Intake Total 540 / 540 Balance 540 / 540 Weight 179 lb 179 lb <Alejandro Figueroa - 06/05/18 17:30> Intake & Output 06/03/18 06/04/18 06/05/18 06/06/18 11:59 11:59 11:59 11:59 Weight 179 lb 179 lb [facility] 06/05/18 14:35> - Constitutional no acute distress <[facility] 06/05/18 14:44> - *Routine HEENT Exam Head: Present: normocephalic, atraumatic <[facility] 06/05/18 14:44> Eye: Present: EOMI, PERRL <[facility] 06/05/18 14:44> ENT: Present: mucous membranes dry <JuanbertTatiana 06/05/18 14:44> - *Routine Neck Exam Present: supple, full ROM <[facility] 06/05/18 14:44> - *Routine Respiratory Exam Present: decreased breath sounds, wheezes <[facility] 06/05/18 14:44> - *Routine Cardiovascular Exam Present: RRR <[facility] 06/05/18 14:44> - *Routine Abdominal Exam Present: soft, normoactive bowel sounds. Absent: tenderness <RicardoTatiana 06/05/18 14:44> - *Routine Extremities Exam Absent: edema <RicardoTatiana 06/05/18 14:44> - *Routine Skin Exam Present: intact <RicardoTatiana - 06/05/18 14:44> - *Routine Neurological Exam Present: alert, oriented X3 <Tatiana Silva - 06/05/18 14:44> H&P: Result - Impressions CXR - Hyperinflation with chronic peribronchial inflammatory change consistent with smoking-related lung disease/COPD <Tatiana Silva 06/05/18 14:44> Assessment and Plan (1) Acute and chronic respiratory failure with hypercapnia Current visit: No Status: Acute Category: Medical Code(s): J96.22 - Acute and chronic respiratory failure with hypercapnia (2) COPD with acute exacerbation Current visit: Yes Status: Acute Category: Medical Code(s): J44.1 - Chronic obstructive pulmonary disease with (acute) exacerbation (3) DNR (do not resuscitate) Current visit: Yes Status: Chronic Category: Medical Code(s): Z66 - Do not resuscitate (4) Tobacco abuse disorder Current visit: Yes Status: Chronic Category: Medical Code(s): Z72.0 - Tobacco use (5) Hypertension Current visit: Yes Status: Chronic Category: Medical Code(s): I10 - Essential (primary) hypertension (6) Hyperlipidemia Current visit: No Status: Chronic Category: Medical Code(s): E78.5 - Hyperlipidemia, unspecified (7) Seizures Current visit: No Status: Chronic Category: Medical Code(s): R56.9 - Unspecified convulsions <Tatiana Silva - 06/05/18 14:39> (1) Acute and chronic respiratory failure with hypercapnia Current visit: No Status: Acute Category: Medical Code(s): J96.22 - Acute and chronic respiratory failure with hypercapnia (2) COPD with acute exacerbation Current visit: Yes Status: Acute Category: Medical Code(s): J44.1 - Chronic obstructive pulmonary disease with (acute) exacerbation (3) DNR (do not resuscitate) Current visit: Yes Status: Chronic Category: Medical Code(s): Z66 - Do not resuscitate (4) Tobacco abuse disorder Current visit: Yes Status: Chronic Category: Medical Code(s): Z72.0 - Tobacco use (5) Hypertension Current visit: Yes Status: Chronic Category: Medical Code(s): I10 - Essential (primary) hypertension (6) Hyperlipidemia Current visit: No Status: Chronic Category: Medical Code(s): E78.5 - Hyperlipidemia, unspecified (7) Seizures Current visit: No Status: Chronic Category: Medical Code(s): R56.9 - Unspecified convulsions <CarolinaAlejandro stovall Christian - 06/05/18 17:30> - Assessment and plan all Dx Assessment and Plan for all problems:: Patient seen and examined. Concur with assessment and plan as outlined. Will repeat CXR in AM. <Alejandro Figueroa - 06/05/18 17:30> Patient has been started on vapotherm and most of her home medications. She has also been started on steroids and abx d/t her elevated WBC. <Tatiana Silva - 06/05/18 14:44>
[2018-06-06 06:20] LABS: Eosinophils # 0.1 K/mm3 (0.0-0.4); Eosinophils % 0.5 % (0.1-12.0); Hematocrit 31.3 % (37.0-47.0); Hemoglobin 9.8 g/dL (12.2-16.2); Lymphocytes # 0.7 K/mm3 (0.7-4.5); Lymphocytes % 6.7 K/mm3 (10-50); Mean Corpuscular HGB Conc 31.4 g/dL (31.8-35.4); Mean Corpuscular Hemoglobin 32.3 pg (27.0-31.2); Mean Corpuscular Volume 102.7 fl (81-99); Monocytes # 0.3 K/mm3 (0.1-1.0); Monocytes % 2.8 % (1.7-9.3); Neutrophils # 9.7 K/mm3 (1.8-7.8); Neutrophils % 90.1 % (37.0-80.0); Platelet Count 183 K/mm3 (142-424); Red Blood Count 3.05 M/mm3 (4.20-5.40); Red Cell Distribution Width 16.4 % (11.5-17.5); White Blood Count 10.8 K/mm3 (4.8-10.8)
[2018-06-06 06:42] LABS: Anion Gap 4.8 mEq/L (5-15); Calcium 8.8 mg/dL (8.5-10.1); Chol/HDL Ratio 2.2 (1-3.5); Potassium 4.8 mmoL/L (3.5-5.1)
[2018-06-06 06:59] LABS: Lymphocytes % 10 % (10-50); Neutrophils % 88 % (42-76); Total Cells Counted 100
[2018-06-06 07:00] LABS: Anisocytosis 1+; Macrocytosis 1+
--- NOTE | 2018-06-06 08:17 | Progress Note ---
<Tatiana Silva - Last Filed: 06/06/18 08:13> Internal Medicine - PN: Subj *Date: 06/06/18 *Time: 08:13 Interval history: Patient states she is feeling about the same today. She might be slightly better. She is still short of breath and wheezing. She did not rest well last night. She has been eating a small amount. Exam Vital signs and Labs for Last 24 Hours: Temp Pulse Resp BP Pulse Ox 98.4 F 71 22 178/63 94 L 06/06/18 07:53 06/06/18 07:53 06/06/18 07:53 06/06/18 07:53 06/06/18 07:53 Laboratory Results - last 24 hr 06/05/18 10:45: WBC 12.0 H, RBC 3.17 L, Hgb 10.5 L, Hct 33.6 L, MCV 105.9 H, MCH 33.0 H, MCHC 31.1 L, RDW 16.0, Plt Count 195, MPV 8.2, Neut % (Auto) 84.9 H , Lymph % (Auto) 9.2 L, [place] % (Auto) 4.0, Eos % (Auto) 1.7, Baso % (Auto) 0.1, Neut # (Auto) 10.2 H, Lymph # (Auto) 1.1, [place] # (Auto) 0.5, Eos # (Auto) 0.2, Baso # (Auto) 0.0 06/05/18 10:45: Lactate 0.7 06/05/18 10:45: B-Natriuretic Peptide 177 H 06/05/18 11:20: Sodium 140, Potassium 4.7, Chloride 98, Carbon Dioxide 45 H*, Anion Gap 1.7 L, BUN 13, Creatinine 1.05 H, Estimated Creat Clear 71, Estimated GFR 53 L, Est GFR ( Amer) 64, Glucose 96, Calcium 8.2 L, Total Bilirubin 0.5, AST 13 L, ALT 15, Alkaline Phosphatase 101, Total Creatine Kinase 29, CK- MB (CK-2) 1.8, CK-MB (CK-2) Rel Index 6.2 H, Troponin I < 0.02, Total Protein 6.5, Albumin 2.6 L, Globulin 3.9 H, Albumin/Globulin Ratio 0.7 L 06/05/18 11:21: Specimen Source Right radial, O2 % 28%, ABG pH 7.37, ABG pCO2 73.8 H, ABG pO2 92.7, ABG HCO3 41.3 H, ABG Total CO2 43.6 H, ABG O2 Saturation 98, ABG Base Excess 16.0 H, Aaron Test Acceptable 06/05/18 16:31: POC Glucose 204 H 06/05/18 17:21: Troponin I < 0.02 06/05/18 23:23: Troponin I < 0.02 06/06/18 05:30: WBC 10.8, RBC 3.05 L, Hgb 9.8 L, Hct 31.3 L, MCV 102.7 H, MCH 32.3 H, MCHC 31.4 L, RDW 16.4, Plt Count 183, MPV 8.0, Neut % (Auto) 90.1 H, Lymph % (Auto) 6.7 L, [place] % (Auto) 2.8, Eos % (Auto) 0.5, Baso % (Auto) 0.0 L, Neut # (Auto) 9.7 H, Lymph # (Auto) 0.7, [place] # (Auto) 0.3, Eos # (Auto) 0.1, Baso # (Auto) 0.0, Total Counted 100, Neutrophils % (Manual) 88 H, Band Neutrophils % 2.0, Lymphocytes % (Manual) 10, Platelet Estimate Normal, Anisocytosis 1+, Macrocytosis 1+ 06/06/18 05:30: Sodium 134 L, Potassium 4.8, Chloride 95 L, Carbon Dioxide 39 H , Anion Gap 4.8 L, BUN 17 D, Creatinine 1.05 H, Estimated Creat Clear 71, Estimated GFR 53 L, Est GFR ( Amer) 64, Glucose 132 H D, Calcium 8.8, Triglycerides 106, Cholesterol 206 H, LDL Cholesterol 92, VLDL Cholesterol 21, HDL Cholesterol 93 H, Cholesterol/HDL Ratio 2.2 06/06/18 05:30: Troponin I < 0.02 06/06/18 05:31: POC Glucose 135 H I & O for Last 24 hours: Intake & Output 06/03/18 06/04/18 06/05/18 06/06/18 11:59 11:59 11:59 11:59 Intake Total 1060 / 1060 Output Total 700 / 700 Balance 360 / 360 Weight 179 lb 179 lb - Constitutional no acute distress - *Routine Respiratory Exam Present: decreased breath sounds, wheezes. Absent: crackles - *Routine Cardiovascular Exam Present: RRR - *Routine Abdominal Exam Present: soft, normoactive bowel sounds. Absent: tenderness - *Routine Extremities Exam Absent: edema Assessment and Plan (1) Acute and chronic respiratory failure with hypercapnia Current visit: No Status: Acute Category: Medical Code(s): J96.22 - Acute and chronic respiratory failure with hypercapnia (2) COPD with acute exacerbation Current visit: Yes Status: Acute Category: Medical Code(s): J44.1 - Chronic obstructive pulmonary disease with (acute) exacerbation (3) DNR (do not resuscitate) Current visit: Yes Status: Chronic Category: Medical Code(s): Z66 - Do not resuscitate (4) Tobacco abuse disorder Current visit: Yes Status: Chronic Category: Medical Code(s): Z72.0 - Tobacco use (5) Hypertension Current visit: Yes Status: Chronic Category: Medical Code(s): I10 - Essential (primary) hypertension (6) Hyperlipidemia Current visit: No Status: Chronic Category: Medical Code(s): E78.5 - Hyperlipidemia, unspecified (7) Seizures Current visit: No Status: Chronic Category: Medical Code(s): R56.9 - Unspecified convulsions - Assessment and plan all Dx Assessment and Plan for all problems:: Patient's lung sounds improving slightly. We will continue Vapotherm. Will discuss further care with Dr. Figueroa. <Alejandro Figueroa - Last Filed: 06/06/18 08:57> Internal Medicine - PN: Subj *Date: 06/06/18 *Time: 08:55 Exam Vital signs and Labs for Last 24 Hours: Temp Pulse Resp BP Pulse Ox 98.4 F 71 22 178/63 94 L 06/06/18 07:53 06/06/18 07:53 06/06/18 07:53 06/06/18 07:53 06/06/18 07:53 Laboratory Results - last 24 hr 06/05/18 10:45: WBC 12.0 H, RBC 3.17 L, Hgb 10.5 L, Hct 33.6 L, MCV 105.9 H, MCH 33.0 H, MCHC 31.1 L, RDW 16.0, Plt Count 195, MPV 8.2, Neut % (Auto) 84.9 H , Lymph % (Auto) 9.2 L, [place] % (Auto) 4.0, Eos % (Auto) 1.7, Baso % (Auto) 0.1, Neut # (Auto) 10.2 H, Lymph # (Auto) 1.1, [place] # (Auto) 0.5, Eos # (Auto) 0.2, Baso # (Auto) 0.0 06/05/18 10:45: Lactate 0.7 06/05/18 10:45: B-Natriuretic Peptide 177 H 06/05/18 11:20: Sodium 140, Potassium 4.7, Chloride 98, Carbon Dioxide 45 H*, Anion Gap 1.7 L, BUN 13, Creatinine 1.05 H, Estimated Creat Clear 71, Estimated GFR 53 L, Est GFR ( Amer) 64, Glucose 96, Calcium 8.2 L, Total Bilirubin 0.5, AST 13 L, ALT 15, Alkaline Phosphatase 101, Total Creatine Kinase 29, CK- MB (CK-2) 1.8, CK-MB (CK-2) Rel Index 6.2 H, Troponin I < 0.02, Total Protein 6.5, Albumin 2.6 L, Globulin 3.9 H, Albumin/Globulin Ratio 0.7 L 06/05/18 11:21: Specimen Source Right radial, O2 % 28%, ABG pH 7.37, ABG pCO2 73.8 H, ABG pO2 92.7, ABG HCO3 41.3 H, ABG Total CO2 43.6 H, ABG O2 Saturation 98, ABG Base Excess 16.0 H, Aaron Test Acceptable 06/05/18 16:31: POC Glucose 204 H 06/05/18 17:21: Troponin I < 0.02 06/05/18 23:23: Troponin I < 0.02 06/06/18 05:30: WBC 10.8, RBC 3.05 L, Hgb 9.8 L, Hct 31.3 L, MCV 102.7 H, MCH 32.3 H, MCHC 31.4 L, RDW 16.4, Plt Count 183, MPV 8.0, Neut % (Auto) 90.1 H, Lymph % (Auto) 6.7 L, [place] % (Auto) 2.8, Eos % (Auto) 0.5, Baso % (Auto) 0.0 L, Neut # (Auto) 9.7 H, Lymph # (Auto) 0.7, [place] # (Auto) 0.3, Eos # (Auto) 0.1, Baso # (Auto) 0.0, Total Counted 100, Neutrophils % (Manual) 88 H, Band Neutrophils % 2.0, Lymphocytes % (Manual) 10, Platelet Estimate Normal, Anisocytosis 1+, Macrocytosis 1+ 06/06/18 05:30: Sodium 134 L, Potassium 4.8, Chloride 95 L, Carbon Dioxide 39 H , Anion Gap 4.8 L, BUN 17 D, Creatinine 1.05 H, Estimated Creat Clear 71, Estimated GFR 53 L, Est GFR ( Amer) 64, Glucose 132 H D, Calcium 8.8, Triglycerides 106, Cholesterol 206 H, LDL Cholesterol 92, VLDL Cholesterol 21, HDL Cholesterol 93 H, Cholesterol/HDL Ratio 2.2 06/06/18 05:30: Troponin I < 0.02 06/06/18 05:31: POC Glucose 135 H I & O for Last 24 hours: Intake & Output 06/03/18 06/04/18 06/05/18 06/06/18 11:59 11:59 11:59 11:59 Intake Total 1060 / 1060 Output Total 700 / 700 Balance 360 / 360 Weight 179 lb 179 lb Assessment and Plan (1) Acute and chronic respiratory failure with hypercapnia Current visit: No Status: Acute Category: Medical Code(s): J96.22 - Acute and chronic respiratory failure with hypercapnia (2) COPD with acute exacerbation Current visit: Yes Status: Acute Category: Medical Code(s): J44.1 - Chronic obstructive pulmonary disease with (acute) exacerbation (3) DNR (do not resuscitate) Current visit: Yes Status: Chronic Category: Medical Code(s): Z66 - Do not resuscitate (4) Tobacco abuse disorder Current visit: Yes Status: Chronic Category: Medical Code(s): Z72.0 - Tobacco use (5) Hypertension Current visit: Yes Status: Chronic Category: Medical Code(s): I10 - Essential (primary) hypertension (6) Hyperlipidemia Current visit: No Status: Chronic Category: Medical Code(s): E78.5 - Hyperlipidemia, unspecified (7) Seizures Current visit: No Status: Chronic Category: Medical Code(s): R56.9 - Unspecified convulsions - Assessment and plan all Dx Assessment and Plan for all problems:: Patient seen and examined. She is more dyspneic and BS are "tighter" this AM. She has not had an aerosol treatment. Will increase steroids, start Duonebs, and check CXR.
[2018-06-06 10:45] LABS: ABG Base Excess 9.9 mmol/L (-2.4-2.3); ABG HCO3 34.4 mmhg (22.0-26.0); ABG Oxygen Saturation 96 % (90-100); ABG PH 7.42 mmol/L (7.35-7.45); ABG PO2 83.6 mmhg (80-100); ABG TCO2 36.1 mmhg (23-27)
[2018-06-06 10:46] LABS: Oxygen 30 %
[2018-06-06 10:47] LABS: ABG PCO2 54.8 mmhg (35.0-45.0); Allen's Test ACCEPTABLE
--- NOTE | 2018-06-06 17:07 | Progress Note ---
Internal Medicine - PN: Subj *Date: 06/06/18 *Time: 17:04 Interval history: She has been more confused this afternoon with visual hallucinations. SHe has not had any Xanax since admission. Her ABG and labs were better this AM. Repeat CXR showed nothing acute. O2 sats have been good. Exam Vital signs and Labs for Last 24 Hours: Temp Pulse Resp BP Pulse Ox 98.3 F 71 22 162/84 96 06/06/18 15:51 06/06/18 15:51 06/06/18 15:51 06/06/18 15:51 06/06/18 15:51 Laboratory Results - last 24 hr 06/05/18 17:21: Troponin I < 0.02 06/05/18 23:23: Troponin I < 0.02 06/06/18 05:30: WBC 10.8, RBC 3.05 L, Hgb 9.8 L, Hct 31.3 L, MCV 102.7 H, MCH 32.3 H, MCHC 31.4 L, RDW 16.4, Plt Count 183, MPV 8.0, Neut % (Auto) 90.1 H, Lymph % (Auto) 6.7 L, [place] % (Auto) 2.8, Eos % (Auto) 0.5, Baso % (Auto) 0.0 L, Neut # (Auto) 9.7 H, Lymph # (Auto) 0.7, [place] # (Auto) 0.3, Eos # (Auto) 0.1, Baso # (Auto) 0.0, Total Counted 100, Neutrophils % (Manual) 88 H, Band Neutrophils % 2.0, Lymphocytes % (Manual) 10, Platelet Estimate Normal, Anisocytosis 1+, Macrocytosis 1+ 06/06/18 05:30: Sodium 134 L, Potassium 4.8, Chloride 95 L, Carbon Dioxide 39 H , Anion Gap 4.8 L, BUN 17 D, Creatinine 1.05 H, Estimated Creat Clear 71, Estimated GFR 53 L, Est GFR ( Amer) 64, Glucose 132 H D, Calcium 8.8, Triglycerides 106, Cholesterol 206 H, LDL Cholesterol 92, VLDL Cholesterol 21, HDL Cholesterol 93 H, Cholesterol/HDL Ratio 2.2 06/06/18 05:30: Troponin I < 0.02 06/06/18 05:31: POC Glucose 135 H 06/06/18 08:52: Specimen Source R radial, O2 % 30, ABG pH 7.42, ABG pCO2 54.8 H , ABG pO2 83.6, ABG HCO3 34.4 H, ABG Total CO2 36.1 H, ABG O2 Saturation 96, ABG Base Excess 9.9 H, Aaron Test Acceptable 06/06/18 11:18: POC Glucose 131 H 06/06/18 16:37: POC Glucose 131 H I & O for Last 24 hours: Intake & Output 06/04/18 06/05/18 06/06/18 06/07/18 11:59 11:59 11:59 11:59 Intake Total 1160 / 1160 480 / 480 Output Total 700 / 700 800 / 800 Balance 460 / 460 -320 / -320 Weight 179 lb 179 lb 178 lb 15.999 oz Assessment and Plan (1) Acute delirium Current visit: Yes Status: Acute Category: Medical Code(s): R41.0 - Disorientation, unspecified (2) Acute and chronic respiratory failure with hypercapnia Current visit: No Status: Acute Category: Medical Code(s): J96.22 - Acute and chronic respiratory failure with hypercapnia (3) COPD with acute exacerbation Current visit: Yes Status: Acute Category: Medical Code(s): J44.1 - Chronic obstructive pulmonary disease with (acute) exacerbation (4) DNR (do not resuscitate) Current visit: Yes Status: Chronic Category: Medical Code(s): Z66 - Do not resuscitate (5) Tobacco abuse disorder Current visit: Yes Status: Chronic Category: Medical Code(s): Z72.0 - Tobacco use (6) Hypertension Current visit: Yes Status: Chronic Category: Medical Code(s): I10 - Essential (primary) hypertension (7) Hyperlipidemia Current visit: No Status: Chronic Category: Medical Code(s): E78.5 - Hyperlipidemia, unspecified (8) Seizures Current visit: No Status: Chronic Category: Medical Code(s): R56.9 - Unspecified convulsions - Assessment and plan all Dx Assessment and Plan for all problems:: Will give one time dose of Ativan and change Xanax to schedule she takes at home. Will begin weaning Vapotherm.
[2018-06-06 21:30] LABS: ABG Base Excess 9.1 mmol/L (-2.4-2.3); ABG HCO3 33.4 mmhg (22.0-26.0); ABG Oxygen Saturation 93 % (90-100); ABG PH 7.43 mmol/L (7.35-7.45); ABG PO2 64.7 mmhg (80-100)
[2018-06-06 21:31] LABS: Allen's Test Acceptable
[2018-06-06 21:32] LABS: ABG PCO2 51.6 mmhg (35.0-45.0)
[2018-06-07 06:50] LABS: Anion Gap 6.5 mEq/L (5-15); Calcium 8.5 mg/dL (8.5-10.1); Potassium 4.5 mmoL/L (3.5-5.1)
[2018-06-07 06:51] LABS: Basophils % 0.1 % (0.1-2.0); Eosinophils % 0.4 % (0.1-12.0); Hematocrit 31.7 % (37.0-47.0); Hemoglobin 10.2 g/dL (12.2-16.2); Lymphocytes # 0.7 K/mm3 (0.7-4.5); Mean Corpuscular HGB Conc 32.2 g/dL (31.8-35.4); Mean Corpuscular Hemoglobin 32.8 pg (27.0-31.2); Mean Corpuscular Volume 101.7 fl (81-99); Mean Platelet Volume 8.3 fl (7.4-10.4); Monocytes # 0.4 K/mm3 (0.1-1.0); Monocytes % 4.1 % (1.7-9.3); Neutrophils # 7.4 K/mm3 (1.8-7.8); Neutrophils % 87.6 % (37.0-80.0); Platelet Count 176 K/mm3 (142-424); Red Blood Count 3.11 M/mm3 (4.20-5.40); Red Cell Distribution Width 17.2 % (11.5-17.5); White Blood Count 8.5 K/mm3 (4.8-10.8)
[2018-06-07 07:35] LABS: Lymphocytes % 6 % (10-50); Monocytes % 1 % (2-9); Neutrophils % 93 % (42-76); RBC Morphology Normal; Total Cells Counted 100
--- NOTE | 2018-06-07 08:23 | Progress Note ---
Internal Medicine - PN: Subj *Date: 06/07/18 *Time: 08:20 Interval history: SHe was asleep when I entered room. Easily aroused. Rested better last night. More alert and less confused this AM. States her breathing feels better. Exam Vital signs and Labs for Last 24 Hours: Temp Pulse Resp BP Pulse Ox 97.8 F 69 22 162/71 95 06/07/18 04:00 06/07/18 04:00 06/07/18 04:00 06/07/18 04:00 06/07/18 04:00 Laboratory Results - last 24 hr 06/06/18 08:52: Specimen Source R radial, O2 % 30, ABG pH 7.42, ABG pCO2 54.8 H , ABG pO2 83.6, ABG HCO3 34.4 H, ABG Total CO2 36.1 H, ABG O2 Saturation 96, ABG Base Excess 9.9 H, Aaron Test Acceptable 06/06/18 11:18: POC Glucose 131 H 06/06/18 16:37: POC Glucose 131 H 06/06/18 21:27: Specimen Source Right radial, O2 % 30, vapotherm, ABG pH 7.43, ABG pCO2 51.6 H, ABG pO2 64.7 L, ABG HCO3 33.4 H, ABG Total CO2 35.0 H, ABG O2 Saturation 93, ABG Base Excess 9.1 H, Aaron Test Acceptable 06/06/18 21:47: POC Glucose 140 H 06/07/18 06:00: WBC 8.5, RBC 3.11 L, Hgb 10.2 L, Hct 31.7 L, MCV 101.7 H, MCH 32.8 H, MCHC 32.2, RDW 17.2, Plt Count 176, MPV 8.3, Neut % (Auto) 87.6 H, Lymph % (Auto) 8.0 L, [place] % (Auto) 4.1, Eos % (Auto) 0.4, Baso % (Auto) 0.1, Neut # (Auto) 7.4, Lymph # (Auto) 0.7, [place] # (Auto) 0.4, Eos # (Auto) 0.0, Baso # (Auto) 0.0, Total Counted 100, Neutrophils % (Manual) 93 H, Lymphocytes % (Manual) 6 L, Monocytes % (Manual) 1 L, Platelet Estimate Normal, RBC Morphology Normal 06/07/18 06:00: Sodium 134 L, Potassium 4.5, Chloride 95 L, Carbon Dioxide 37 H , Anion Gap 6.5, BUN 27 H D, Creatinine 1.43 H D, Estimated Creat Clear 52, Estimated GFR 37 L, Est GFR ( Amer) 45 L D, Glucose 138 H, Calcium 8.5 06/07/18 06:11: POC Glucose 132 H I & O for Last 24 hours: Intake & Output 06/04/18 06/05/18 06/06/18 06/07/18 11:59 11:59 11:59 11:59 Intake Total 1160 / 1160 1100 / 1100 Output Total 700 / 700 2400 / 2400 Balance 460 / 460 -1300 / -1300 Weight 179 lb 179 lb 178 lb 15.999 oz - Constitutional Comments: No resp distress, color adequate - *Routine Respiratory Exam Comments: generally diminished BS but improve aeration - *Routine Cardiovascular Exam Present: RRR - *Routine Extremities Exam Absent: edema Assessment and Plan (1) Acute and chronic respiratory failure with hypercapnia Current visit: No Status: Acute Category: Medical Code(s): J96.22 - Acute and chronic respiratory failure with hypercapnia (2) COPD with acute exacerbation Current visit: Yes Status: Acute Category: Medical Code(s): J44.1 - Chronic obstructive pulmonary disease with (acute) exacerbation (3) DNR (do not resuscitate) Current visit: Yes Status: Chronic Category: Medical Code(s): Z66 - Do not resuscitate (4) Acute delirium Current visit: Yes Status: Acute Category: Medical Code(s): R41.0 - Disorientation, unspecified (5) Tobacco abuse disorder Current visit: Yes Status: Chronic Category: Medical Code(s): Z72.0 - Tobacco use (6) Hypertension Current visit: Yes Status: Chronic Category: Medical Code(s): I10 - Essential (primary) hypertension (7) Hyperlipidemia Current visit: No Status: Chronic Category: Medical Code(s): E78.5 - Hyperlipidemia, unspecified (8) Seizures Current visit: No Status: Chronic Category: Medical Code(s): R56.9 - Unspecified convulsions - Assessment and plan all Dx Assessment and Plan for all problems:: Will d/c Vapotherm and resume supplemental O2. Encourage activity. Possible home tomorrow.
--- NOTE | 2018-06-08 08:46 | Progress Note ---
Internal Medicine - PN: Subj *Date: 06/08/18 *Time: 08:42 Interval history: Vapotherm stopped yesterday and she has been on nasal canula and tolerating well. In fact, staff has been able to wean her to room air at times and still maintain adequate O2 sats. However with any activity and during sleep she will desat. Subjectively she feels better and her mental status has cleared. She denies cough. Exam Vital signs and Labs for Last 24 Hours: Temp Pulse Resp BP Pulse Ox 97.5 F L 67 20 133/70 88 L 06/08/18 07:46 06/08/18 07:46 06/08/18 07:46 06/08/18 07:46 06/08/18 07:46 Laboratory Results - last 24 hr 06/07/18 11:57: POC Glucose 263 H 06/07/18 16:30: POC Glucose 263 H 06/07/18 20:59: POC Glucose 180 H 06/08/18 06:08: POC Glucose 301 H* I & O for Last 24 hours: Intake & Output 06/05/18 06/06/18 06/07/18 06/08/18 11:59 11:59 11:59 11:59 Intake Total 1160 / 1160 1200 / 1200 2356 / 2356 Output Total 700 / 700 2400 / 2400 2100 / 2100 Balance 460 / 460 -1200 / -1200 256 / 256 Weight 179 lb 179 lb 178 lb 15.999 oz Microbiology Reports for the Last 24 Hours: Microbiology 06/05/18 10:45 Blood Blood Culture - Preliminary NO GROWTH AFTER 48 HOURS 06/05/18 10:45 Blood Blood Culture - Preliminary NO GROWTH AFTER 48 HOURS - Constitutional no acute distress - *Routine Respiratory Exam Comments: generally diminished BS, no wheezes - *Routine Extremities Exam Absent: edema Assessment and Plan (1) Acute and chronic respiratory failure with hypercapnia Current visit: No Status: Acute Category: Medical Code(s): J96.22 - Acute and chronic respiratory failure with hypercapnia (2) COPD with acute exacerbation Current visit: Yes Status: Acute Category: Medical Code(s): J44.1 - Chronic obstructive pulmonary disease with (acute) exacerbation (3) DNR (do not resuscitate) Current visit: Yes Status: Chronic Category: Medical Code(s): Z66 - Do not resuscitate (4) Acute delirium Current visit: Yes Status: Resolved Category: Medical Code(s): R41.0 - Disorientation, unspecified (5) Tobacco abuse disorder Current visit: Yes Status: Chronic Category: Medical Code(s): Z72.0 - Tobacco use (6) Hypertension Current visit: Yes Status: Chronic Category: Medical Code(s): I10 - Essential (primary) hypertension (7) Hyperlipidemia Current visit: No Status: Chronic Category: Medical Code(s): E78.5 - Hyperlipidemia, unspecified (8) Seizures Current visit: No Status: Chronic Category: Medical Code(s): R56.9 - Unspecified convulsions - Assessment and plan all Dx Assessment and Plan for all problems:: SHe is stable for discharge. Will continue on steroids. Explained that it is imperative for her to stop smoking. She could not afford the Chantix ($400) but states she has cut down to 1/2 PPD at home. I also explained the fallacy of increasing her FiO2 at home when her sats drop resulting in CO2 retention. She seemed to understand. Will f/u in office in 4 days.
--- NOTE | 2018-06-08 09:00 | Progress Note ---
Internal Medicine - PN: Subj *Date: 06/08/18 *Time: 09:00 Exam Vital signs and Labs for Last 24 Hours: Temp Pulse Resp BP Pulse Ox 97.5 F L 67 20 133/70 88 L 06/08/18 07:46 06/08/18 07:46 06/08/18 07:46 06/08/18 07:46 06/08/18 07:46 Laboratory Results - last 24 hr 06/07/18 11:57: POC Glucose 263 H 06/07/18 16:30: POC Glucose 263 H 06/07/18 20:59: POC Glucose 180 H 06/08/18 06:08: POC Glucose 301 H* I & O for Last 24 hours: Intake & Output 06/05/18 06/06/18 06/07/18 06/08/18 23:59 23:59 23:59 23:59 Intake Total 1100 / 1100 1120 / 1120 1483 / 1483 1013 / 1013 Output Total 400 / 400 1950 / 1950 2350 / 2350 500 / 500 Balance 700 / 700 -830 / -830 -867 / -867 513 / 513 Weight 81.193 kg 81.193 kg Microbiology Reports for the Last 24 Hours: Microbiology 06/05/18 10:45 Blood Blood Culture - Preliminary NO GROWTH AFTER 48 HOURS 06/05/18 10:45 Blood Blood Culture - Preliminary NO GROWTH AFTER 48 HOURS Assessment and Plan (1) Acute and chronic respiratory failure with hypercapnia Current visit: No Status: Acute Category: Medical Code(s): J96.22 - Acute and chronic respiratory failure with hypercapnia (2) COPD with acute exacerbation Current visit: Yes Status: Acute Category: Medical Code(s): J44.1 - Chronic obstructive pulmonary disease with (acute) exacerbation (3) DNR (do not resuscitate) Current visit: Yes Status: Chronic Category: Medical Code(s): Z66 - Do not resuscitate (4) Acute delirium Current visit: Yes Status: Resolved Category: Medical Code(s): R41.0 - Disorientation, unspecified (5) Tobacco abuse disorder Current visit: Yes Status: Chronic Category: Medical Code(s): Z72.0 - Tobacco use (6) Hypertension Current visit: Yes Status: Chronic Category: Medical Code(s): I10 - Essential (primary) hypertension (7) Hyperlipidemia Current visit: No Status: Chronic Category: Medical Code(s): E78.5 - Hyperlipidemia, unspecified (8) Seizures Current visit: No Status: Chronic Category: Medical Code(s): R56.9 - Unspecified convulsions The patient's infection will respond to the chosen ABx?: Yes Is the patient receiving the right drug, dose, and route?: Yes Could a more targeted ABx be ordered?: No (PATIENT BEING D/C TODAY)
--- NOTE | 2018-06-09 15:39 | Discharge Summary ---
General - General Admission date:: 06/06/18 <Alejandro Figueroa - 06/17/18 15:09> 06/06/18 <RicardoTatiana - 06/09/18 15:39> Discharge date: 06/08/18 <RicardoTatiana - 06/09/18 15:39> HPI HPI: Ms. Gamez is a 63 year old white female with chronic COPD who presented to the ER with SOA. Her states she has not done well at home since her discharge from the hospital in April for a COPD exacerbation wit hypercapnia. He states she normally stays on 3L of oxygen at home and uses her duonebs. Yesterday she began getting confused and felt like she was smothering, so they turned her oxygen up to 4L. This did not help, therefore she was brought to the ER for evaluation. She denies having fever, chills, or productive sputum. She denies nausea, vomiting, or diarrhea. She denies leg edema. She was found to have hypercapnia and was admitted and placed on the vapotherm. She did have cardiac catheterization at [facility] 5 years ago which was negative for coronary artery disease. Of note, she is a DNR. <RicardoTatiana - 06/09/18 15:39> Hospital Course Hospital Course: The patient was started on vapotherm and most of her home medications. She was also started on steroids and abx d/t her elevated WBC. By the day after admission, her chest sounded tighter. Her steroids were increased, she was started on Duonebs, and a repeat CXR was ordered. She became more confused with visual hallucinations. She had not had any Xanax since admission. Her ABG and labs were improving and her repeat CXR showed nothing acute. O2 sats had been good. She was given a one time dose of Ativan and her Xanax was scheduled as she took at home. Her Vapotherm was weaned and she became stable on supplemental oxygen. Subjectively she felt better and her mental status improved. She was stable for discharge. She will be continued on steroids. It was explained to the patient that it is imperative for her to stop smoking. She could not afford the Chantix ($400) but stated she had cut down to 1/[address] Figueroa also explained the fallacy of increasing her FiO2 at home when her sats drop resulting in CO2 retention. She seemed to understand. She will f/u in the office of [facility] in 4 days. <JuanbertTatiana - 06/09/18 15:39> Objective Vital signs: Temp Pulse Resp BP Pulse Ox 97.5 F L 75 20 133/70 88 L 06/08/18 07:46 06/08/18 11:03 06/08/18 07:46 06/08/18 07:46 06/08/18 07:46 <Alejandro Figueroa - 06/17/18 15:09> Temp Pulse Resp BP Pulse Ox 97.5 F L 75 20 133/70 88 L 06/08/18 07:46 06/08/18 11:03 06/08/18 07:46 06/08/18 07:46 06/08/18 07:46 <Tatiana Silva - 06/09/18 15:39> Narrative: - Constitutional no acute distress - *Routine HEENT Exam Head: Present: normocephalic, atraumatic Eye: Present: EOMI, PERRL ENT: Present: mucous membranes dry - *Routine Neck Exam Present: supple, full ROM - *Routine Respiratory Exam Present: decreased breath sounds, wheezes - *Routine Cardiovascular Exam Present: RRR - *Routine Abdominal Exam Present: soft, normoactive bowel sounds. Absent: tenderness - *Routine Extremities Exam Absent: edema - *Routine Skin Exam Present: intact - *Routine Neurological Exam Present: alert, oriented X3 <Tatiana Silva - 06/09/18 15:39> Results Labs on day of discharge: Preliminary micro results at discharge 06/05/18 10:45 Blood Culture - Preliminary Blood NO GROWTH AFTER 48 HOURS 06/05/18 10:45 Blood Culture - Preliminary Blood NO GROWTH AFTER 48 HOURS <Tatiana Silva - 06/09/18 15:39> DS: Diagnosis - Discharge Diagnosis (1) Acute and chronic respiratory failure with hypercapnia Status: Acute (2) COPD with acute exacerbation Status: Acute (3) DNR (do not resuscitate) Status: Chronic (4) Acute delirium Status: Resolved (5) Tobacco abuse disorder Status: Chronic (6) Hypertension Status: Chronic (7) Hyperlipidemia Status: Chronic (8) Seizures Status: Chronic <Tatiana Silva 06/09/18 15:31> (1) Acute and chronic respiratory failure with hypercapnia Status: Acute (2) COPD with acute exacerbation Status: Acute (3) DNR (do not resuscitate) Status: Chronic (4) Acute delirium Status: Resolved (5) Tobacco abuse disorder Status: Chronic (6) Hypertension Status: Chronic (7) Hyperlipidemia Status: Chronic (8) Seizures Status: Chronic <Alejandro Figueroa - 06/17/18 15:09> Discharge Plan - Patient Discharge Instructions ACTIVITY: Continue current activity <Tatiana Silva - 06/09/18 15:39> DIET: continue same diet <Tatinaa Silva - 06/09/18 15:39> Patient Instructions: PCO2, DI for Chronic Obstructive Pulmonary Disease < Alejandro Figueroa - 06/17/18 15:09> Forms: <Alejandro Figueroa - 06/17/18 15:09> - Follow up Plan Follow up with: Alejandro Figueroa MD [Primary Care Provider] - 06/12/18 ( in [facility]) <Alejandro Figueroa - 06/17/18 15:09> Disposition: Home, Self-Care <Alejandro Figueroa - 06/17/18 15:09> Home Medications: Home Medications Medication Instructions Recorded Confirmed Type ALPRAZolam [Xanax 1mg tab] 1 mg PO TIDP PRN 05/01/18 06/05/18 History Gabapentin [Neurontin 600mg 600 mg PO TID 05/01/18 06/05/18 History tablet] Isosorbide Mononitrate [Imdur 60mg 60 mg PO DAILY 05/01/18 06/05/18 History ER tablet] Metoprolol Tartrate [Lopressor 25 mg PO BID 05/01/18 06/05/18 History 25mg tablet] Omeprazole [Omeprazole 20mg Tab] 20 mg PO DAILY 05/01/18 06/05/18 History Spironolactone 25 mg PO BID 05/01/18 06/05/18 History Venlafaxine HCl [Venlafaxine HCl 75 mg PO DAILY 05/01/18 06/05/18 History ER] Venlafaxine HCl [Venlafaxine HCl 150 mg PO DAILY 05/01/18 06/05/18 History ER] levETIRAcetam [Levetiracetam] 500 mg PO BID 05/01/18 06/05/18 History Azithromycin [Zithromax 250mg 250 mg PO MOWEFR 06/05/18 06/05/18 History tab] Benzonatate [Benzonatate 200mg Cap] 200 mg PO TIDP PRN 06/05/18 06/05/18 History Fluticasone/Vilanterol [Breo 1 puff IH DAILY 06/05/18 06/05/18 History Ellipta 100-25 Mcg INH] Ipratropium/Albuterol Sulfate 3 ml IH QID 06/05/18 06/05/18 History [Duoneb 3mL neb] Umeclidinium [place] [Incruse 1 puff IH DAILY 06/05/18 06/05/18 History Ellipta] Varenicline Tartrate [Chantix 1mg 1 mg PO BID 06/05/18 06/05/18 History tablet] buPROPion HCl [Bupropion HCl Sr] 150 mg PO BID 06/05/18 06/05/18 History <Alejandro Figueroa - 06/17/18 15:09> Prescriptions/Medication Reconciliation: New predniSONE [Deltasone 20mg tablet] 20 mg PO BID #14 tab Continue Gabapentin [Neurontin 600mg tablet] 600 mg PO TID Isosorbide Mononitrate [Imdur 60mg ER tablet] 60 mg PO DAILY levETIRAcetam [Levetiracetam] 500 mg PO BID Metoprolol Tartrate [Lopressor 25mg tablet] 25 mg PO BID Omeprazole [Omeprazole 20mg Tab] 20 mg PO DAILY Venlafaxine HCl [Venlafaxine HCl ER] 75 mg PO DAILY Umeclidinium [place] [Incruse Ellipta] 1 puff IH DAILY Azithromycin [Zithromax 250mg tab] 250 mg PO MOWEFR buPROPion HCl [Bupropion HCl Sr] 150 mg PO BID Spironolactone 25 mg PO BID Venlafaxine HCl [Venlafaxine HCl ER] 150 mg PO DAILY ALPRAZolam [Xanax 1mg tab] 1 mg PO TIDP PRN PRN Reason: Anxiety Fluticasone/Vilanterol [Breo Ellipta 100-25 Mcg INH] 1 puff IH DAILY Varenicline Tartrate [Chantix 1mg tablet] 1 mg PO BID Benzonatate [Benzonatate 200mg Cap] 200 mg PO TIDP PRN PRN Reason: Cough Ipratropium/Albuterol Sulfate [Duoneb 3mL neb] 3 ml IH QID <Alejandro Figueroa - 06/17/18 15:09> - Additional Information Additional Information: Concur with plan for discharge as outlined above. <Alejandro Figueroa - 06/17/18 15:09>
== END 2018-06-08 12:50 | disposition home or self-care (01) ==
LOC: 2ND 10:27 → ER 10:27 → 2ND 12:45
PROVIDERS: ADMIT Family Medicine; ATTEND Family Medicine

== ENCOUNTER → 2019-03-04 15:04 | Outpatient (CLI) | payer MEDICARE, OTHER, SELFPAY ==
--- NOTE | 2019-03-04 15:13 | XR_ITS ---
XR chest 2V HISTORY: COPD exacerbation, shortness of breath and cough ITS.REASON: COPD ORDERING PHYSICIAN: Fadia Montoya APRN PATIENT AGE: 63 years COMPARISON: 06/06/2018 FINDINGS: The cardiomediastinal silhouette and pulmonary vascularity are within normal limits. Hyperinflation with attenuation of the peripheral pulmonary vessels consistent with COPD. No lobar consolidation or collapse. No acute bony findings. IMPRESSION. COPD, no acute finding.
== END ==
PROVIDERS: PCP Family Medicine; Visit Provider Nurse Practitioner
DX: J44.1 Chronic obstructive pulmonary disease with (acute) exacerbation (principal)
CPT/HCPCS: 71046

== ENCOUNTER 2019-11-09 12:15 | Inpatient (IN) ==
--- NOTE | 2019-11-09 12:27 | Emergency Department Note ---
ED Disposition Clinical Impression: Acute and chronic respiratory failure with hypercapnia, Acute exacerbation of chronic obstructive pulmonary disease (COPD) Dyspnea Qualifiers: Dyspnea type: unspecified Qualified Code(s): R06.00 - Dyspnea, unspecified Disposition: Admitted As Inpatient Condition on Discharge: Critical (Stable) Referrals: Provider,Referral, MD [Primary Care Provider] - Time of Disposition: 13:57 - Critical Care Critical Care Time: Yes Attestation: On , the high probability of a clinically significant, sudden or life threatening deterioration of the following system(s) required my full and direct attention, intervention and personal management. The time I documented below is in addition to time spent performing reported procedures but includes the following listed in this critical care notation. Total Critical Care Time: 45 Vital system(s) involved:: Central Nervous System, Metabolic Failure, Respiratory Failure My critical care processes included: Assessment & monitoring of V/S, Initial and Re-exams, Data Review/Interpretation, Coordinating Care, Medication Orders and management, Documentation Medical Decision Making - Medical Records Medical records reviewed: Yes: I reviewed the patient's medical records. - Eleno Inquiry Pt receiving controlled substance: No [place]eno was queried for this patient: No Vital Signs: 11/09/19 12:15 11/09/19 13:28 Temperature 97.9 F Temperature Source Oral Pulse Rate [Right Radial] 77 80 Respiratory Rate 24 20 Blood Pressure [Right Arm] 157/69 H 127/56 L Blood Pressure Mean [Right Arm] 98 79 02 Sat by Pulse Oximetry 93 L 85 L Oxygen Delivery Method Nasal Cannula BiPAP Oxygen Flow Rate (LPM) 2 - Lab Data Lab results reviewed: Yes: I reviewed the patient's lab results. Lab Results 11/09/19 12:30: WBC 12.7 H, RBC 3.75 L, Hgb 11.1 L, Hct 36.4 L, MCV 97.3, MCH 29.5, MCHC 30.4 L, RDW 13.8, Plt Count 154, MPV 8.4, Neut % (Auto) 88.3 H, Lymph % (Auto) 6.7 L, [place] % (Auto) 3.7, Eos % (Auto) 1.0, Baso % (Auto) 0.3, Neut # (Auto) 11.2 H, Lymph # (Auto) 0.9, [place] # (Auto) 0.5, Eos # (Auto) 0.1, Baso # (Auto) 0.0, Total Counted 100, Neutrophils % (Manual) 85 H, Lymphocytes % (Manual) 8 L, Monocytes % (Manual) 6, Eosinophils % (Manual) 1, Platelet Estimate Normal, RBC Morphology Not Reportable, Hypochromasia 1+ 11/09/19 12:30: PT 10.0, INR 0.96, APTT 27.7 11/09/19 12:30: Sodium 134 L, Potassium 4.6, Chloride 95 L, Carbon Dioxide 43 H* , Anion Gap 0.6 L, BUN 13, Creatinine 1.17 H, Estimated Creat Clear 82, Es timated GFR 47 L, Est GFR ( Amer) 56 L, Glucose 150 H, Calcium 8.5, Troponin I < 0.02 11/09/19 12:30: B-Natriuretic Peptide 378 H 11/09/19 12:30: Magnesium 2.4 H 11/09/19 12:30: Influenza Type A Ag Negative, Influenza Type B Ag Negative 11/09/19 12:30: Lactate 1.0 11/09/19 12:31: Specimen Source Left brachial, O2 % 2l, ABG pH 7.23 L*, ABG pCO2 99.1 H, ABG pO2 66.3 L, ABG HCO3 40.7 H, ABG Total CO2 43.7 H, ABG O2 Saturation 93, ABG Base Excess 13.1 H 11/09/19 13:17: Specimen Source Right radial, O2 % 30, ABG pH 7.26 L, ABG pCO2 85.2 H, ABG pO2 50.8 L, ABG HCO3 37.4 H, ABG Total CO2 40.0 H, ABG O2 Saturation 88 L, ABG Base Excess 10.3 H, Aaron Test Acceptable, Tidal Volume Bipap 14/8 Result diagrams: 11/09/19 12:30 11/09/19 12:30 Orders (Tests/Meds): ED MEDICATIONS Discontinued Medications Generic Name Dose Route Start Last Admin Trade Name Freq PRN Reason Stop Dose Admin Albuterol Sulfate 10 mg 11/09/19 12:21 Albuterol 0.083% 2.5mg/3ml Neb IH 11/09/19 12:22 ONCE ONE Magnesium Sulfate 2 gm/ Sodium 104 mls @ 100 mls/hr 11/09/19 12:23 11/09/19 12:37 Chloride IV 11/09/19 13:25 100 mls/hr ONCE ONE Administration Methylprednisolone Sodium Succinate 125 mg 11/09/19 12:21 11/09/19 12:30 Solu-Medrol 125mg/2ml Vial IV 11/09/19 12:22 125 mg ONCE ONE Administration Ondansetron HCl 4 mg 11/09/19 12:19 11/09/19 12:30 Zofran 4mg/2ml Vial IV 11/09/19 12:20 4 mg ONCE ONE Administration ORDERS Category Date Time Status Troponin I Q3H Lab 11/09/19 15:30 Ordered Troponin I Q3H Lab 11/09/19 18:30 Ordered Blood Culture Stat Micro 11/09/19 12:31 Received ABG [Arterial Blood Gas] Stat RT 11/09/19 13:17 Results ECG Request by /Sukhdeep Stat Y 11/09/19 12:19 Ordered - Radiology Data #1 Image(s): Chest Image Reviewed: Yes I reviewed the patient's radiology results [address] [facility] [address] [place] [address] XRay Report Signed Patient: Deja Gamez MR#: [id number] : 1955 Acct:[id number] Age/Sex: 64 / F ADM Date: 11/09/19 Loc: ER Attending Dr: Ordering Physician: Meir Silveira III, DO Date of Service: 11/09/19 Procedure(s): XR chest portable Accession Number(s): [id number] cc: Khadar Morales MD; Provider,Referral MD~ PROCEDURE: XR CHEST PORTABLE CLINICAL HISTORY: COPD COMPARISON: WO CT CHEST W/O CONTRAST from 07/22/2014 CXR1VP XR chest portable from 05/01/2018 CXR2V XR chest 2V from 06/05/2018 CXR1VP XR chest portable from 06/06/2018 FINDINGS: The cardiomediastinal silhouette and pulmonary vascularity are within normal limits. Lungs are emphysematous and there are chronic accentuated interstitial markings. There is no acute infiltrate. Asymmetrical prominence of the right 1st costochondral junction is unchanged. No acute bony abnormalities. IMPRESSION: No acute findings. Dictated by: Khadar Morales 11/09/2019 12:55 Electronically signed by Khadar Morales in [place] 11/09/2019 12:55 Medical Decision Narrative: 12:30 I have evaluated this patient. EKG reviewed and no acute changes are noted. Chest x-ray and cardiac labs are ordered. I have ordered Solu-Medrol 125 mg IV push, Zofran 4 mg IV push, and continuous albuterol 10 mg neb treatment and BiPAP. I have also ordered magnesium 2 g IV push as the patient is already received 1 DuoNeb and 2 albuterol treatments prehospital by EMS without significant improvement. Patient will be admitted. 13:53 I have reviewed results of patient's chest x-ray and her labs as well as her ABG. Patient has been watched closely throughout her stay here in the ER and reassessed often. At this time patient's lungs are essentially clear to auscultation with resolution of her wheezing. Her vital signs are stable with the oxygen saturation at 93% with BiPAP on, heart rate of 80 and blood pressure and in the 130s systolic. Patient has been able to rest intermittently here in the ER. She still denies having chest pain and states that she is feeling better since the BiPAP is been started. I have ordered Levaquin IV piggyback on this patient and will admit the patient to ICU. I did discuss the patient's case with her PCP Dr. Figueroa and he is agreed to admit her. I have discussed results of work-up, diagnosis and care plan at length with patient and family and they understand, agree and all questions answered. Patient also is a DO NOT INTUBATE/no endotracheal tube patient. Resp/SOB HPI - General Chief Complaint: Shortness of Breath/Dyspnea Stated Complaint: SHORTNESS OF BREATH Time Seen by Provider: 11/09/19 12:15 Mode of Arrival: EMS Limitations: No Limitations Description of Symptoms (Recalled from ER Triage Doc. by RN): PT PRESENTS TO ED WITH C/O SHORTNESS OF BREATH. - History of Present Illness Patient is here in emergency room from home via EMS for evaluation complaining of having shortness of breath. Patient has a longstanding history of COPD. Patient states that she has been having increasing shortness of breath since Saturday. She also has had a congested cough. Patient received 1 DuoNeb and 2 albuterol neb treatments in route to the hospital by EMS. Patient denies having chest pain. No nausea vomiting or abdominal pain. Patient is a smoker. - Related Data Home Medications Medication Instructions Recorded Confirmed Gabapentin [Neurontin 600mg 600 mg PO TID 05/01/18 11/09/19 tablet] Isosorbide Mononitrate [Imdur 60mg 60 mg PO DAILY 05/01/18 11/09/19 ER tablet] Metoprolol Tartrate [Lopressor 25 mg PO BID 05/01/18 11/09/19 25mg tablet] Omeprazole [Omeprazole 20mg Tab] 20 mg PO DAILY 05/01/18 11/09/19 Spironolactone [Spironolactone 25 mg PO BID 05/01/18 11/09/19 25mg Tablet] Venlafaxine HCl [Venlafaxine HCl 150 mg PO DAILY 05/01/18 11/09/19 ER] Benzonatate [Benzonatate 200mg Cap] 200 mg PO TIDP PRN 06/05/18 11/09/19 Ipratropium/Albuterol Sulfate 3 ml IH QID 06/05/18 11/09/19 [Duoneb 3mL neb] albuterol sulfate 90 mcg/actuation 1 puff INHALATION Q6H PRN 06/02/19 11/09/19 aerosol inhaler aspirin 81 mg tablet,delayed 81 mg PO DAILY 06/02/19 11/09/19 release atorvastatin 20 mg tablet 20 mg PO DAILY 06/02/19 11/09/19 fluticasone fur. 100 mcg-umeclid 1 inh INHALATION DAILY 06/02/19 11/09/19 62.5 mcg-vilant 25 mcg inhalat.powder furosemide 40 mg tablet 40 mg PO DAILY 06/02/19 11/09/19 levetiracetam 500 mg tablet 750 mg PO BID tab 06/02/19 11/09/19 nitroglycerin 0.4 mg sublingual 0.4 mg SUBLINGUAL Q5-15M PRN 06/02/19 11/09/19 tablet Allergies Allergy/AdvReac Type Severity Reaction Status Date / Time amoxicillin [From Augmentin] Allergy Mild NA-NAUSEA/V Verified 11/09/19 12:22 OMITING clavulanic acid Allergy Mild NA-NAUSEA/V Verified 11/09/19 12:22 [From Augmentin] OMITING clindamycin [CLINDAMYCIN] Allergy Unknown Verified 11/09/19 12:22 [facility] History - Hepatitis A Screen Drug use history?: No High risk sexual behaviors?: No History of sexually transmitted infection?: No Currently employed?: No Childcare worker?: No Do you have indoor plumbing?: Yes Do you have electricity?: Yes Attestation statement:: This patient has been screened for Hepatitis A risk factors. I have reviewed the patient's past medical history: Yes Medical History: Reports:: Chronic Obstructive Pulmonary Disease (COPD), Depression, Home Oxygen, Hyperlipidemia, Hypertension, Seizures Denies:: Cancer, Diabetes Mellitus Type 1, Diabetes Mellitus Type 2, MRSA Other Surgeries: Yes: Appendectomy, Cardiac Catheterization (normal), Cholecystectomy, Hysterectomy-Total, Tubal Ligation Amputation: No Fractures: No Comment: Breast bx, neck surgery - Social History Smoking Status: Current every day smoker Tobacco Type: cigarettes # Packs/Day (cigarettes): 1 #Yrs smoked (if former smoker): 50 Alcohol Intake: never Substance Use Type: denies use Occupational Status: disabled Housing: house Household Members: spouse - Psychiatric History Pschychiatric History:: Reports:: Depression Family Hx:: Cancer, Coronary Artery Disease, Hypertension Comment: Mother-CABG,COPD@65. Father-Valve Replacement@70 ROS Obtained: Yes All systems reviewed & no additional complaints - Constitutional Constitutional: Reports system reviewed and no additional complaints, except as docu - Eyes Eyes: Reports system reviewed and no additional complaints, except as docu - ENT Ears, Nose, Mouth, and Throat: Reports system reviewed and no additional complaints, except as docu - Cardiovascular Cardiovascular: Reports system reviewed and no additional complaints, except as docu, Reports as per HPI, Denies chest pain, Reports dyspnea, Reports leg edema (chronic bilateral) - Respiratory Respiratory: Yes system reviewed and no additional complaints, except as docu, Yes as per HPI, Yes chest congestion, Yes cough, Yes dyspnea, Yes dyspnea on exertion, No stridor, Yes wheezing - Gastrointestinal Gastrointestingal: Reports: system reviewed and no additional complaints, except as docu - Genitourinary Female Genitourinary: Reports system reviewed and no additional complaints, except as docu - Musculoskeletal Musculoskeletal: Reports system reviewed and no additional complaints, except as docu - Integumentary/Breasts Skin/Breast: Reports system reviewed and no additional complaints, except as docu - Neurologic Neurologic: Reports system reviewed and no additional complaints, except as docu - Endocrine Endocrine: Reports system reviewed and no additional complaints, except as docu - Hematologic/Lymphatic Henatologic/Lymphatic: Reports system reviewed and no additional complaints, except as docu - Allergic/Immunologic Allergic/Immunologic: Reports system reviewed and no additional complaints, except as docu Physical Exam - General General appearance: alert, anxious, in distress (moderate respiratory distress), obese - Head Head exam: atraumatic, normocephalic, normal inspection - Eye Eye exam: Present: PERRL, EOMI - ENT ENT exam: Present: mucous membranes moist - Neck Neck exam: Present: trachea midline - Chest Chest inspection: Present: normal inspection, symmetric chest wall rise - Respiratory Respiratory exam: Present: wheezes (Bilateral and diffuse end expiratory wheezing), accessory muscle use, other (Significantly diminished breath sounds bilaterally with diffuse end expiratory wheezing posteriorly. She does have an occasional congested, rhonchorous cough.) - Cardiovascular Cardiovascular exam: Present: regular rate, normal heart sounds (distant). Absent: gallop, clicks - Abdominal Exam Abdominal exam: Present: soft, normal bowel sounds. Absent: tenderness, guarding, rebound, Alberto's sign, tenderness at McBurney's Point - Extremities Exam Extremities exam: Present: normal inspection, full ROM, other (Chronic appearing bilateral pretibial edema) - Neurological Exam Neurological exam: Present: alert, oriented X3, CN II-XII intact - Expanded Neurological Exam Patient oriented to: Present: person, place Speech: Present: fluid speech Coma scale eye opening: Spontaneous Coma scale motor response: Obeys commands Coma scale verbal response: Oriented Coma scale total: 15 - Psychiatric Psychiatric exam: Present: normal mood, anxious - Skin Skin exam: Present: warm, dry, intact. Absent: rash, diaphoresis
[2019-11-09 12:41] LABS: ABG Base Excess 13.1 mmol/L (-2.4-2.3); ABG HCO3 40.7 mmhg (22.0-26.0); ABG Oxygen Saturation 93 % (90-100); ABG PH 7.23 mmol/L (7.35-7.45); ABG PO2 66.3 mmhg (80-100); ABG TCO2 43.7 mmhg (23-27)
[2019-11-09 12:49] LABS: ABG PCO2 99.1 mmhg (35.0-45.0)
[2019-11-09 13:02] LABS: Anion Gap 0.6 mEq/L (5-15); Blood Urea Nitrogen 13 mg/dL (7-18); Calcium 8.5 mg/dL (8.5-10.1); Chloride 95 mmol/L (98-107); Glucose 150 mg/dL (74-106); Sodium 134 mmol/L (136-145)
[2019-11-09 13:03] LABS: Carbon Dioxide 43 mmol/L (21.0-32.0)
[2019-11-09 13:04] LABS: Activated Partial Thrombo Time 27.7 seconds (23.6-34.0); INR 0.96 (0.9-1.1)
[2019-11-09 13:16] LABS: Basophils % 0.3 % (0.1-2.0); Eosinophils # 0.1 K/mm3 (0.0-0.4); Hematocrit 36.4 % (37.0-47.0); Hemoglobin 11.1 g/dL (12.2-16.2); Lymphocytes # 0.9 K/mm3 (0.7-4.5); Lymphocytes % 6.7 % (10-50); Mean Corpuscular HGB Conc 30.4 g/dL (31.8-35.4); Mean Corpuscular Volume 97.3 fl (81-99); Mean Platelet Volume 8.4 fl (7.4-10.4); Monocytes # 0.5 K/mm3 (0.1-1.0); Monocytes % 3.7 % (1.7-9.3); Neutrophils # 11.2 K/mm3 (1.8-7.8); Neutrophils % 88.3 % (37.0-80.0); Platelet Count 154 K/mm3 (142-424); Red Blood Count 3.75 M/mm3 (4.20-5.40); Red Cell Distribution Width 13.8 % (11.5-17.5); White Blood Count 12.7 K/mm3 (4.8-10.8)
[2019-11-09 13:36] LABS: Eosinophils % 1 % (0-3); Lymphocytes % 8 % (10-50); Monocytes % 6 % (2-9); Neutrophils % 85 % (42-76); Total Cells Counted 100
[2019-11-09 13:37] LABS: ABG Base Excess 10.3 mmol/L (-2.4-2.3); ABG HCO3 37.4 mmhg (22.0-26.0); ABG Oxygen Saturation 88 % (90-100); ABG PH 7.26 mmol/L (7.35-7.45); ABG PO2 50.8 mmhg (80-100)
[2019-11-09 13:37] LABS: Hypochromasia 1+
[2019-11-09 13:39] LABS: Oxygen 30 %
[2019-11-09 13:40] LABS: Allen's Test ACCEPTABLE; Tidal Volume BIPAP 14/8
[2019-11-09 13:42] LABS: ABG PCO2 85.2 mmhg (35.0-45.0)
--- NOTE | 2019-11-09 14:24 | History & Physical Report ---
*Admission Date: 11/09/19 <Deja Padilla 11/09/19 15:23> *Chief complaint: shortness of breath <Deja Padilla 11/09/19 14:51> *History of present illness: Ms. Gamez is a 64-year-old female with a history of severe COPD O2 dependent, tobacco addiction, depression anxiety, hyperlipidemia, who presented to [facility] emergency room this a.m. with progressive shortness of breath. Her breathing name more difficult since 11/06/2019.She also describes a congesti ve cough. She received DuoNeb treatments in route to the hospital. She denies having any chest pain. With evaluation in the emergency room EKG was noted to have no changes. She was given 125 mg of Solu-Medrol and Zofran IV as well as started on BiPAP. She was also given 2 g of magnesium IV push. Vital signs stabilized with O2 saturation at 93% on BiPAP. She continually denied any chest pain and was started on Levaquin IV. Patient noted to be a DO NOT INTUBATEIMPRESSION: White blood cell count is elevated at 12.7 with ABG showing a respiratory acidosis. After arrival to the unit patient states she has been sick for a couple of days. states she has not been eating or drinking for 2 days. He made her come to the emergency room for evaluation. <Deja Padilla 11/09/19 15:36> [facility] History Medical History: Reports:: Anxiety, Chronic Obstructive Pulmonary Disease (COPD), Depression, Home Oxygen, Hyperlipidemia, Hypertension, Seizures Denies:: Cancer, Diabetes Mellitus Type 1, Diabetes Mellitus Type 2, MRSA <Deja Padilla 11/09/19 14:51> *Have you ever received a pneumonia vaccine?: Yes <Deja Padilla 11/09/19 14:51> *Have you received a flu vaccine this season?: Yes <Deja Padilla 11/09/19 14:51> Laterality Cases: Bilateral: Cataract <Deja Padilla 11/09/19 14:51> Other Surgeries: Yes: Appendectomy, Cardiac Catheterization (normal), Cholecystectomy, Hysterectomy-Total, Tubal Ligation <Deja Padilla 11/09/19 14:51> Amputation: No <Deja Padilla 11/09/19 14:51> Fractures: No <Deja Padilla 11/09/19 14:51> - *Social History Smoking Status: Current every day smoker <ValerieDeja 11/09/19 14:51> Tobacco Type: cigarettes <PadillaDeja 11/09/19 14:51> # Packs/Day (cigarettes): 1 <PadillaDeja 11/09/19 14:51> #Yrs smoked (if former smoker): 50 <PadillaDeja 11/09/19 14:51> Alcohol Intake: never <ValerieDeja 11/09/19 14:51> Substance Use Type: denies use <Padilla,Deja 11/09/19 14:51> *Occupational Status:: disabled <Padilla,Deja 11/09/19 14:51> Housing: house <PadillaDeja 11/09/19 14:51> Household Members: spouse <PadillaDeja 11/09/19 14:51> *Travel in the last 8 weeks: None <PadillaDeja 11/09/19 14:51> - Psychiatric History Pschychiatric History:: Reports:: Anxiety, Depression <ValerieDeja 11/09/19 14:51> Family Hx:: Cancer, Coronary Artery Disease, Hypertension <ValerieDeja 11/09/19 14:51> Review of Systems - Constitutional Reports fever(s), Reports headache(s), Reports weakness <Deja Padilla 11/09/19 15:36> - ENT Denies ear pain, Denies sore throat <Deja Padilla 11/09/19 15:36> - *Cardiovascular Reports shortness of breath, Denies chest pain <Deja Padilla 11/09/19 15:36> - *Respiratory Reports chest congestion, Reports cough, Reports shortness of breath <Deja Padilla 11/09/19 15:36> - *Gastrointestinal Denies abdominal pain, Denies nausea, Denies vomiting <Deja Padilla 11/09/19 15:36> - *Genitourinary Denies difficulty urinating <Deja Padilla 11/09/19 15:36> - *Musculoskeletal Reports joint pain <Deja Padilla - 11/09/19 15:36> - *Neurologic Reports seizure-like activity, Reports headache(s) <Deja Padilla - 11/09/19 15:36> Meds Home Medications Medication Instructions Recorded Confirmed Type Gabapentin [Neurontin 600mg 600 mg PO TID 05/01/18 11/09/19 History tablet] Isosorbide Mononitrate [Imdur 60mg 60 mg PO DAILY 05/01/18 11/09/19 History ER tablet] Metoprolol Tartrate [Lopressor 25 mg PO BID 05/01/18 11/09/19 History 25mg tablet] Omeprazole [Omeprazole 20mg Tab] 20 mg PO DAILY 05/01/18 11/09/19 History Spironolactone [Spironolactone 25 mg PO BID 05/01/18 11/09/19 History 25mg Tablet] Venlafaxine HCl [Venlafaxine HCl 150 mg PO DAILY 05/01/18 11/09/19 History ER] Benzonatate [Benzonatate 200mg Cap] 200 mg PO TIDP PRN 06/05/18 11/09/19 History Ipratropium/Albuterol Sulfate 3 ml IH QID 06/05/18 11/09/19 History [Duoneb 3mL neb] albuterol sulfate 90 mcg/actuation 1 puff INHALATION Q6H PRN 06/02/19 11/09/19 History aerosol inhaler aspirin 81 mg tablet,delayed 81 mg PO DAILY 06/02/19 11/09/19 History release atorvastatin 20 mg tablet 20 mg PO DAILY 06/02/19 11/09/19 History fluticasone fur. 100 mcg-umeclid 1 inh INHALATION DAILY 06/02/19 11/09/19 History 62.5 mcg-vilant 25 mcg inhalat.powder furosemide 40 mg tablet 40 mg PO DAILY 06/02/19 11/09/19 History levetiracetam 500 mg tablet 750 mg PO BID tab 06/02/19 11/09/19 History nitroglycerin 0.4 mg sublingual 0.4 mg SUBLINGUAL Q5-15M PRN 06/02/19 11/09/19 History tablet <Alejandro Figueroa - 11/09/19 17:29> Allergies Allergy/AdvReac Type Severity Reaction Status Date / Time amoxicillin [From Augmentin] Allergy Mild NA-NAUSEA/V Verified 11/09/19 12:22 OMITING clavulanic acid Allergy Mild NA-NAUSEA/V Verified 11/09/19 12:22 [From Augmentin] OMITING clindamycin [CLINDAMYCIN] Allergy Unknown Verified 11/09/19 12:22 <Alejandro Figueroa - 11/09/19 17:29> Exam Vital signs and Labs for Last 24 Hours: Temp Pulse Resp BP Pulse Ox 97.8 F 84 18 157/78 H 92 L 11/09/19 15:31 11/09/19 16:30 11/09/19 16:30 11/09/19 16:30 11/09/19 16:30 Laboratory Results - last 24 hr 11/09/19 12:30: WBC 12.7 H, RBC 3.75 L, Hgb 11.1 L, Hct 36.4 L, MCV 97.3, MCH 29.5, MCHC 30.4 L, RDW 13.8, Plt Count 154, MPV 8.4, Neut % (Auto) 88.3 H, Lymph % (Auto) 6.7 L, [place] % (Auto) 3.7, Eos % (Auto) 1.0, Baso % (Auto) 0.3, Neut # (Auto) 11.2 H, Lymph # (Auto) 0.9, [place] # (Auto) 0.5, Eos # (Auto) 0.1, Baso # (Auto) 0.0, Total Counted 100, Neutrophils % (Manual) 85 H, Lymphocytes % (Manual) 8 L, Monocytes % (Manual) 6, Eosinophils % (Manual) 1, Platelet Estimate Normal, RBC Morphology Not Reportable, Hypochromasia 1+ 11/09/19 12:30: PT 10.0, INR 0.96, APTT 27.7 11/09/19 12:30: Sodium 134 L, Potassium 4.6, Chloride 95 L, Carbon Dioxide 43 H* , Anion Gap 0.6 L, BUN 13, Creatinine 1.17 H, Estimated Creat Clear 82, Estimated GFR 47 L, Est GFR ( Amer) 56 L, Glucose 150 H, Calcium 8.5, Troponin I < 0.02 11/09/19 12:30: B-Natriuretic Peptide 378 H 11/09/19 12:30: Magnesium 2.4 H 11/09/19 12:30: Influenza Type A Ag Negative, Influenza Type B Ag Negative 11/09/19 12:30: Lactate 1.0 11/09/19 12:31: Specimen Source Left brachial, O2 % 2l, ABG pH 7.23 L*, ABG pCO2 99.1 H, ABG pO2 66.3 L, ABG HCO3 40.7 H, ABG Total CO2 43.7 H, ABG O2 Saturation 93, ABG Base Excess 13.1 H 11/09/19 13:17: Specimen Source Right radial, O2 % 30, ABG pH 7.26 L, ABG pCO2 85.2 H, ABG pO2 50.8 L, ABG HCO3 37.4 H, ABG Total CO2 40.0 H, ABG O2 Saturation 88 L, ABG Base Excess 10.3 H, Aaron Test Acceptable, Tidal Volume Bipap 14/8 11/09/19 15:04: Urine Color Yellow, Urine Appearance Clear, Urine pH 6.5, Ur Specific [place] 1.025, Urine Protein 1+, Urine Glucose (UA) Negative, Urine Ketones Negative, Urine Blood Trace-i, Urine Nitrate Negative, Urine Bilirubin Negative, Urine Urobilinogen 0.2, Ur Leukocyte Esterase Negative, Urine RBC None, Urine WBC Occasional, Ur Squamous Epith Cells Occasional, Urine Bacteria None 11/09/19 16:03: Troponin I < 0.02 11/09/19 16:41: POC Glucose 191 H <CarolinaAlejandro minor - 11/09/19 17:29> Temp Pulse Resp BP Pulse Ox 97.9 F 80 20 127/56 L 85 L 11/09/19 12:15 11/09/19 13:28 11/09/19 13:28 11/09/19 13:28 11/09/19 13:28 Laboratory Results - last 24 hr 11/09/19 12:30: WBC 12.7 H, RBC 3.75 L, Hgb 11.1 L, Hct 36.4 L, MCV 97.3, MCH 29.5, MCHC 30.4 L, RDW 13.8, Plt Count 154, MPV 8.4, Neut % (Auto) 88.3 H, Lymph % (Auto) 6.7 L, [place] % (Auto) 3.7, Eos % (Auto) 1.0, Baso % (Auto) 0.3, Neut # (Auto) 11.2 H, Lymph # (Auto) 0.9, [place] # (Auto) 0.5, Eos # (Auto) 0.1, Baso # (Auto) 0.0, Total Counted 100, Neutrophils % (Manual) 85 H, Lymphocytes % (Manual) 8 L, Monocytes % (Manual) 6, Eosinophils % (Manual) 1, Platelet Estimate Normal, RBC Morphology Not Reportable, Hypochromasia 1+ 11/09/19 12:30: PT 10.0, INR 0.96, APTT 27.7 11/09/19 12:30: Sodium 134 L, Potassium 4.6, Chloride 95 L, Carbon Dioxide 43 H* , Anion Gap 0.6 L, BUN 13, Creatinine 1.17 H, Estimated Creat Clear 82, Estimated GFR 47 L, Est GFR ( Amer) 56 L, Glucose 150 H, Calcium 8.5, Troponin I < 0.02 11/09/19 12:30: B-Natriuretic Peptide 378 H 11/09/19 12:30: Magnesium 2.4 H 11/09/19 12:30: Influenza Type A Ag Negative, Influenza Type B Ag Negative 11/09/19 12:30: Lactate 1.0 11/09/19 12:31: Specimen Source Left brachial, O2 % 2l, ABG pH 7.23 L*, ABG pCO2 99.1 H, ABG pO2 66.3 L, ABG HCO3 40.7 H, ABG Total CO2 43.7 H, ABG O2 Saturation 93, ABG Base Excess 13.1 H 11/09/19 13:17: Specimen Source Right radial, O2 % 30, ABG pH 7.26 L, ABG pCO2 85.2 H, ABG pO2 50.8 L, ABG HCO3 37.4 H, ABG Total CO2 40.0 H, ABG O2 Saturation 88 L, ABG Base Excess 10.3 H, Aaron Test Acceptable, Tidal Volume Bipap 14/8 <Deja Padilla - 11/09/19 14:51> I & O for Last 24 hours: Intake & Output 11/07/19 11/08/19 11/09/19 11/10/19 11:59 11:59 11:59 11:59 Intake Total 150 / 150 Output Total 340 / 340 Balance -190 / -190 Weight 252 lb 3.341 oz <Alejandro Figueroa - 11/09/19 17:29> Intake & Output 11/07/19 11/08/19 11/09/19 11/10/19 11:59 11:59 11:59 11:59 Weight 235 lb <Deja Padilla - 11/09/19 14:51> Radiology Reports for the Last 24 Hours: 11/09/2019 chest x-ray IMPRESSION: No acute findings. <Deja Padilla 11/09/19 15:13> - Constitutional Comments: Appears sick. On BiPAP. <Deja Padilla 11/09/19 15:36> - *Routine HEENT Exam Eye: Present: scleral injection, periorbital swelling <Deja Padilla 11/09/19 15:36> ENT: Present: mucous membranes moist <Deja Padilla 11/09/19 15:36> - *Routine Neck Exam Present: supple. Absent: carotid bruit <Deja Padilla 11/09/19 15:36> - *Routine Respiratory Exam Present: diminished air movement (Throughout) <Deja Padilla 11/09/19 15:36> - *Routine Cardiovascular Exam Present: RRR <Deja Padilla 11/09/19 15:36> Comments: Monitor showing sinus rhythm <Deja Padilla 11/09/19 15:36> - *Routine Abdominal Exam Present: soft, obese. Absent: tenderness <ValerieDeja 11/09/19 15:36> - *Routine Extremities Exam Present: edema. Absent: calf tenderness <Deja Padilla 11/09/19 15:36> - *Routine Neurological Exam Present: alert (She is oriented. Recognizes me.) <Deja Padilla 11/09/19 15:36> Assessment and Plan (1) Acute and chronic respiratory failure with hypercapnia Current visit: Yes Status: Acute Category: Medical Code(s): J96.22 - Acute and chronic respiratory failure with hypercapnia (2) Acute exacerbation of chronic obstructive pulmonary disease (COPD) Current visit: Yes Status: Acute Category: Medical Code(s): J44.1 - Chronic obstructive pulmonary disease with (acute) exacerbation (3) COPD (chronic obstructive pulmonary disease) Current visit: No Status: Acute Qualifiers: COPD type: emphysema Emphysema type: unspecified Qualified Code(s): J43.9 - Emphysema, unspecified Category: Medical Code(s): J44.9 - Chronic obstructive pulmonary disease, unspecified (4) Community acquired pneumonia Current visit: No Status: Acute Qualifiers: Laterality: right Lung location: upper lobe of lung Category: Medical Code(s): J18.9 - Pneumonia, unspecified organism (5) Seizures Current visit: No Status: Chronic Category: Medical Code(s): R56.9 - Unspecified convulsions (6) Tobacco abuse disorder Current visit: No Status: Chronic Category: Medical Code(s): Z72.0 - Tobacco use <Alejandro Figueroa - 11/09/19 17:29> (1) Acute and chronic respiratory failure with hypercapnia Current visit: Yes Status: Acute Category: Medical Code(s): J96.22 - Acute and chronic respiratory failure with hypercapnia (2) Acute exacerbation of chronic obstructive pulmonary disease (COPD) Current visit: Yes Status: Acute Category: Medical Code(s): J44.1 - Chronic obstructive pulmonary disease with (acute) exacerbation (3) COPD (chronic obstructive pulmonary disease) Current visit: No Status: Acute Qualifiers: COPD type: emphysema Emphysema type: unspecified Qualified Code(s): J43.9 - Emphysema, unspecified Category: Medical Code(s): J44.9 - Chronic obstructive pulmonary disease, unspecified (4) Community acquired pneumonia Current visit: No Status: Acute Qualifiers: Laterality: right Lung location: upper lobe of lung Category: Medical Code(s): J18.9 - Pneumonia, unspecified organism (5) Seizures Current visit: No Status: Chronic Category: Medical Code(s): R56.9 - Unspecified convulsions (6) Tobacco abuse disorder Current visit: No Status: Chronic Category: Medical Code(s): Z72.0 - Tobacco use <Deja Padilla - 11/09/19 15:30> - Assessment and plan all Dx Assessment and Plan for all problems:: Patient seen and examined. Condition is guarded. Concur with above assessment and plan. <Alejandro Figueroa - 11/09/19 17:29> Correct respiratory acidosis. BiPAP. Steroids, duo nebs, and IV antibiotics. <Deja Padilla - 11/09/19 15:36>
[2019-11-09 15:18] LABS: Microscopic, Urine URINE MICROSCOPIC (MICROSCOPIC)
[2019-11-09 15:21] LABS: Appearance,Urine CLEAR (Clear); Bilirubin,Urine Negative (Negative); Blood, Urine TRACE-I (Negative); Color,Urine YELLOW (Yellow); Glucose,Urine (UA) Negative (Negative); Ketones,Urine Negative (Negative); Leukocyte Esterase,Urine Negative (Negative); PH,Urine 6.5 (5.0-8.5); Protein,Urine 1+ (Negative); Specific Gravity, Urine 1.025 (1.005-1.030); Urobilinogen,Urine 0.2 EU/dl (0.2)
--- NOTE | 2019-11-09 16:13 | Electrocardiograph Report ---
APPROVED REPORT Exam: Resting ECG HR:86 bpm ECG Measurements Heart Rate 86 AXES WV 174 P 101 QRSd 82 QRS 67 QT 372 T55 QTc 445 <Conclusion> Sinus rhythm with Motion Artifact Otherwise normal ECG Electronically signed by : Sen Mandujano, 11/09/2019 16:13:10
[2019-11-09 16:30] LABS: Squamous Epithelial Cell,Urine Occasional #/hpf (0-5); WBC,Urine Occasional #/hpf (0-3)
[2019-11-10 05:59] LABS: Basophils % 0.2 % (0.1-2.0); Eosinophils # 0.1 K/mm3 (0.0-0.4); Eosinophils % 1.1 % (0.1-12.0); Hematocrit 38.1 % (37.0-47.0); Hemoglobin 11.5 g/dL (12.2-16.2); Lymphocytes # 0.7 K/mm3 (0.7-4.5); Lymphocytes % 6.2 % (10-50); Mean Corpuscular HGB Conc 30.2 g/dL (31.8-35.4); Mean Platelet Volume 8.1 fl (7.4-10.4); Monocytes # 0.3 K/mm3 (0.1-1.0); Monocytes % 2.9 % (1.7-9.3); Neutrophils # 9.4 K/mm3 (1.8-7.8); Neutrophils % 89.6 % (37.0-80.0); Platelet Count 178 K/mm3 (142-424); Red Blood Count 3.84 M/mm3 (4.20-5.40); Red Cell Distribution Width 13.9 % (11.5-17.5); White Blood Count 10.5 K/mm3 (4.8-10.8)
[2019-11-10 06:15] LABS: Albumin/Globulin Ratio 0.8 (1.1-1.8); Anion Gap 6.3 mEq/L (5-15); Bilirubin,Total 0.5 mg/dL (0.2-1.0); Calcium 8.8 mg/dL (8.5-10.1); Globulin 3.7 gm/dl (1.3-3.2); Total Protein,Serum 6.7 gm/dL (6.4-8.2)
--- NOTE | 2019-11-10 07:18 | Pharmacy Consult Notes ---
[facility] Pharmacy VTE Monitoring - Patient Demographics Admission date: 11/09/19 Report Date: 11/10/19 Time: 07:17 Allergies/Adverse Reactions: Patient Allergies amoxicillin [From Augmentin] Allergy (Mild, Verified 11/09/19 12:22) NA-NAUSEA/VOMITING clavulanic acid [From Augmentin] Allergy (Mild, Verified 11/09/19 12:22) NA-NAUSEA/VOMITING clindamycin [CLINDAMYCIN] Allergy (Unknown, Verified 11/09/19 12:22) Height: 1.8 m Weight: 114.4 kg Patient Problems: Current Active Problems Acute exacerbation of chronic obstructive pulmonary disease (COPD) (Acute) Dyspnea (Chronic) Acute and chronic respiratory failure with hypercapnia (Acute) - VTE Risk Labs: VTE Related Lab Results Hgb 11.5 g/dL (12.2-16.2) L 11/10/19 05:21 Hct 38.1 % (37.0-47.0) 11/10/19 05:21 Plt Count 178 K/mm3 (142-424) 11/10/19 05:21 PT 10.0 seconds (9.4-11.8) 11/09/19 12:30 INR 0.96 (0.9-1.1) 11/09/19 12:30 APTT 27.7 seconds (23.6-34.0) 11/09/19 12:30 BUN 18 mg/dL (7-18) D 11/10/19 05:21 Creatinine 1.26 mg/dL (0.55-1.02) H 11/10/19 05:21 Estimated Creat Clear 81 mL/min (50-200) 11/10/19 05:21 VTE Score: 6 VTE Risk Level: Moderate Risk - Prophylaxis VTE Prophylaxis Ordered?: Yes Types of VTE Prophylaxis: TEDS Knee High Location of Applied Device: Bilateral Lower Extremeties
[2019-11-10 07:24] LABS: Eosinophils % 1 % (0-3); Lymphocytes % 5 % (10-50); Monocytes % 5 % (2-9); Neutrophils % 89 % (42-76); Total Cells Counted 100
[2019-11-10 07:25] LABS: Hypochromasia 1+
--- NOTE | 2019-11-10 08:17 | Progress Note ---
<Deja Padilla - Last Filed: 11/10/19 08:14> Internal Medicine - PN: Subj *Date: 11/10/19 *Time: 08:14 Interval history: Per nursing: Patient had a restless early night. She did better the latter part. She requested De [place] Torre to be removed. After removal she went to sleep. She has done better since being on the Vapotherm at 50%. Sats have been in the high 80s and low 90s. Potassium a little elevated at 5.3. She has renal insufficiency. 's did stay with her throughout the night. He also feels she rested better after having the De [place]re catheter removed. Exam Vital signs and Labs for Last 24 Hours: Temp Pulse Resp BP Pulse Ox 97.9 F 87 24 114/58 L 92 L 11/10/19 04:00 11/10/19 06:04 11/10/19 06:00 11/10/19 06:00 11/10/19 07:44 Laboratory Results - last 24 hr 11/09/19 12:30: WBC 12.7 H, RBC 3.75 L, Hgb 11.1 L, Hct 36.4 L, MCV 97.3, MCH 29.5, MCHC 30.4 L, RDW 13.8, Plt Count 154, MPV 8.4, Neut % (Auto) 88.3 H, Lymph % (Auto) 6.7 L, [place] % (Auto) 3.7, Eos % (Auto) 1.0, Baso % (Auto) 0.3, Neut # (Auto) 11.2 H, Lymph # (Auto) 0.9, [place] # (Auto) 0.5, Eos # (Auto) 0.1, Baso # (Auto) 0.0, Total Counted 100, Neutrophils % (Manual) 85 H, Lymphocytes % (Manual) 8 L, Monocytes % (Manual) 6, Eosinophils % (Manual) 1, Platelet Estimate Normal, RBC Morphology Not Reportable, Hypochromasia 1+ 11/09/19 12:30: PT 10.0, INR 0.96, APTT 27.7 11/09/19 12:30: Sodium 134 L, Potassium 4.6, Chloride 95 L, Carbon Dioxide 43 H* , Anion Gap 0.6 L, BUN 13, Creatinine 1.17 H, Estimated Creat Clear 82, Estimated GFR 47 L, Est GFR ( Amer) 56 L, Glucose 150 H, Calcium 8.5, Troponin I < 0.02 11/09/19 12:30: B-Natriuretic Peptide 378 H 11/09/19 12:30: Magnesium 2.4 H 11/09/19 12:30: Influenza Type A Ag Negative, Influenza Type B Ag Negative 11/09/19 12:30: Lactate 1.0 11/09/19 12:31: Specimen Source Left brachial, O2 % 2l, ABG pH 7.23 L*, ABG pCO2 99.1 H, ABG pO2 66.3 L, ABG HCO3 40.7 H, ABG Total CO2 43.7 H, ABG O2 Saturation 93, ABG Base Excess 13.1 H 11/09/19 13:17: Specimen Source Right radial, O2 % 30, ABG pH 7.26 L, ABG pCO2 85.2 H, ABG pO2 50.8 L, ABG HCO3 37.4 H, ABG Total CO2 40.0 H, ABG O2 Saturation 88 L, ABG Base Excess 10.3 H, Aaron Test Acceptable, Tidal Volume Bipap 14/8 11/09/19 15:04: Urine Color Yellow, Urine Appearance Clear, Urine pH 6.5, Ur Specific [place] 1.025, Urine Protein 1+, Urine Glucose (UA) Negative, Urine Ketones Negative, Urine Blood Trace-i, Urine Nitrate Negative, Urine Bilirubin Negative, Urine Urobilinogen 0.2, Ur Leukocyte Esterase Negative, Urine RBC None, Urine WBC Occasional, Ur Squamous Epith Cells Occasional, Urine Bacteria None 11/09/19 16:03: Troponin I < 0.02 11/09/19 16:41: POC Glucose 191 H 11/09/19 18:43: Troponin I < 0.02 11/09/19 20:47: POC Glucose 184 H 11/10/19 05:21: WBC 10.5, RBC 3.84 L, Hgb 11.5 L, Hct 38.1, MCV 99.0, MCH 29.9, MCHC 30.2 L, RDW 13.9, Plt Count 178, MPV 8.1, Neut % (Auto) 89.6 H, Lymph % (Auto) 6.2 L, [place] % (Auto) 2.9, Eos % (Auto) 1.1, Baso % (Auto) 0.2, Neut # (Auto) 9.4 H, Lymph # (Auto) 0.7, [place] # (Auto) 0.3, Eos # (Auto) 0.1, Baso # (Auto) 0.0, Total Counted 100, Neutrophils % (Manual) 89 H, Lymphocytes % (Manual) 5 L, Monocytes % (Manual) 5, Eosinophils % (Manual) 1, Platelet Estimate Normal, Hypochromasia 1+ 11/10/19 05:21: Sodium 137, Potassium 5.3 H, Chloride 96 L, Carbon Dioxide 40 H, Anion Gap 6.3, BUN 18 D, Creatinine 1.26 H, Estimated Creat Clear 81, Estimated GFR 43 L, Est GFR ( Amer) 52 L, Glucose 164 H, Calcium 8.8, Total Bilirubin 0.5, AST 28, ALT 15, Alkaline Phosphatase 128 H, Total Protein 6.7, Albumin 3.0 L, Globulin 3.7 H, Albumin/Globulin Ratio 0.8 L 11/10/19 06:01: POC Glucose 160 H I & O for Last 24 hours: Intake & Output 11/07/19 11/08/19 11/09/19 11/10/19 11:59 11:59 11:59 11:59 Intake Total 470 / 470 Output Total 2014 Balance -1545 / -1545 Weight 252 lb 3.341 oz - Constitutional no acute distress Comments: Slept through the exam. Lying in ball on her right side. - *Routine Respiratory Exam Comments: Improved air movement bilaterally posteriorly and anteriorly. No audible wheezing. - *Routine Cardiovascular Exam Present: RRR (Monitor showing sinus rhythm in the 70s) - *Routine Abdominal Exam Present: soft, normoactive bowel sounds. Absent: tenderness - *Routine Extremities Exam Absent: edema - *Routine Neurological Exam Sleeping Assessment and Plan (1) Acute and chronic respiratory failure with hypercapnia Current visit: Yes Status: Acute Category: Medical Code(s): J96.22 - Acute and chronic respiratory failure with hypercapnia (2) Acute exacerbation of chronic obstructive pulmonary disease (COPD) Current visit: Yes Status: Acute Category: Medical Code(s): J44.1 - Chronic obstructive pulmonary disease with (acute) exacerbation (3) COPD (chronic obstructive pulmonary disease) Current visit: No Status: Acute Qualifiers: COPD type: emphysema Emphysema type: unspecified Qualified Code(s): J43.9 - Emphysema, unspecified Category: Medical Code(s): J44.9 - Chronic obstructive pulmonary disease, unspecified (4) Community acquired pneumonia Current visit: No Status: Acute Qualifiers: Laterality: right Lung location: upper lobe of lung Category: Medical Code(s): J18.9 - Pneumonia, unspecified organism (5) Seizures Current visit: No Status: Chronic Category: Medical Code(s): R56.9 - Unspecified convulsions (6) Tobacco abuse disorder Current visit: No Status: Chronic Category: Medical Code(s): Z72.0 - Tobacco use (7) Anxiety and depression Current visit: Yes Status: Acute Category: Medical Code(s): F41.9 - Anxiety disorder, unspecified; F32.9 - Major depressive disorder, single episode, unspecified (8) Renal insufficiency Current visit: Yes Status: Acute Category: Medical Code(s): N28.9 - D isorder of kidney and ureter, unspecified - Assessment and plan all Dx Assessment and Plan for all problems:: Continue with current care with aggressive pulmonary toilet as patient tolerates. <Alejandro Figueroa - Last Filed: 11/10/19 18:05> Internal Medicine - PN: Subj *Date: 11/10/19 *Time: 18:04 Exam Vital signs and Labs for Last 24 Hours: Temp Pulse Resp BP Pulse Ox 97.8 F 68 19 116/75 93 L 11/10/19 08:00 11/10/19 16:00 11/10/19 16:00 11/10/19 16:00 11/10/19 16:00 Laboratory Results - last 24 hr 11/09/19 13:17: Vent Rate Not Reportable, PEEP Not Reportable 11/09/19 18:43: Troponin I < 0.02 11/09/19 20:47: POC Glucose 184 H 11/10/19 05:21: WBC 10.5, RBC 3.84 L, Hgb 11.5 L, Hct 38.1, MCV 99.0, MCH 29.9, MCHC 30.2 L, RDW 13.9, Plt Count 178, MPV 8.1, Neut % (Auto) 89.6 H, Lymph % (Auto) 6.2 L, [place] % (Auto) 2.9, Eos % (Auto) 1.1, Baso % (Auto) 0.2, Neut # (Auto) 9.4 H, Lymph # (Auto) 0.7, [place] # (Auto) 0.3, Eos # (Auto) 0.1, Baso # (Auto) 0.0, Total Counted 100, Neutrophils % (Manual) 89 H, Lymphocytes % (Manual) 5 L, Monocytes % (Manual) 5, Eosinophils % (Manual) 1, Platelet Estimate Normal, Hypochromasia 1+ 11/10/19 05:21: Sodium 137, Potassium 5.3 H, Chloride 96 L, Carbon Dioxide 40 H, Anion Gap 6.3, BUN 18 D, Creatinine 1.26 H, Estimated Creat Clear 81, Estimated GFR 43 L, Est GFR ( Amer) 52 L, Glucose 164 H, Calcium 8.8, Total Bilirubin 0.5, AST 28, ALT 15, Alkaline Phosphatase 128 H, Total Protein 6.7, Albumin 3.0 L, Globulin 3.7 H, Albumin/Globulin Ratio 0.8 L 11/10/19 06:01: POC Glucose 160 H I & O for Last 24 hours: Intake & Output 11/08/19 11/09/19 11/10/19 11/11/19 11:59 11:59 11:59 11:59 Intake Total 470 / 470 240 / 240 Output Total 2014 Balance -1545 / -1545 240 / 240 Weight 252 lb 3.341 oz Assessment and Plan (1) Acute and chronic respiratory failure with hypercapnia Current visit: Yes Status: Acute Category: Medical Code(s): J96.22 - Acute and chronic respiratory failure with hypercapnia (2) Acute exacerbation of chronic obstructive pulmonary disease (COPD) Current visit: Yes Status: Acute Category: Medical Code(s): J44.1 - Chronic obstructive pulmonary disease with (acute) exacerbation (3) COPD (chronic obstructive pulmonary disease) Current visit: No Status: Acute Qualifiers: COPD type: emphysema Emphysema type: unspecified Qualified Code(s): J43.9 - Emphysema, unspecified Category: Medical Code(s): J44.9 - Chronic obstructive pulmonary disease, unspecified (4) Community acquired pneumonia Current visit: No Status: Acute Qualifiers: Laterality: right Lung location: upper lobe of lung Category: Medical Code(s): J18.9 - Pneumonia, unspecified organism (5) Seizures Current visit: No Status: Chronic Category: Medical Code(s): R56.9 - Unspecified convulsions (6) Tobacco abuse disorder Current visit: No Status: Chronic Category: Medical Code(s): Z72.0 - Tobacco use (7) Anxiety and depression Current visit: Yes Status: Acute Category: Medical Code(s): F41.9 - Anxiety disorder, unspecified; F32.9 - Major depressive disorder, single episode, unspecified (8) Renal insufficiency Current visit: Yes Status: Acute Category: Medical Code(s): N28.9 - Disorder of kidney and ureter, unspecified - Assessment and plan all Dx Assessment and Plan for all problems:: Patient seen and examined. She is marginally better. Will continue current treatment. Wean Vapotherm per RT supervision. Check echo.
[2019-11-11 05:42] LABS: Basophils % 0.2 % (0.1-2.0); Eosinophils # 0.1 K/mm3 (0.0-0.4); Eosinophils % 1.1 % (0.1-12.0); Hematocrit 34.3 % (37.0-47.0); Hemoglobin 10.9 g/dL (12.2-16.2); Lymphocytes # 0.6 K/mm3 (0.7-4.5); Lymphocytes % 6.5 % (10-50); Mean Corpuscular HGB Conc 31.8 g/dL (31.8-35.4); Mean Corpuscular Volume 95.1 fl (81-99); Mean Platelet Volume 8.1 fl (7.4-10.4); Monocytes # 0.3 K/mm3 (0.1-1.0); Monocytes % 2.8 % (1.7-9.3); Neutrophils # 8.1 K/mm3 (1.8-7.8); Neutrophils % 89.4 % (37.0-80.0); Platelet Count 173 K/mm3 (142-424); Red Cell Distribution Width 13.9 % (11.5-17.5); White Blood Count 9.1 K/mm3 (4.8-10.8)
--- NOTE | 2019-11-11 06:00 | Cardiology Report ---
APPROVED REPORT EXAM: Comprehensive 2D, Doppler, and color-flow Echocardiogram Physician Assistant: Allyson Madrigal RT(R) Ht: 5 ft 11 in Wt: 252lbs BSA: 2.33 BP: 157/78 mmHg Indications: Severe COPD, smoker, HTN, SOB, hyperlipidemia, family history CAD. Echo Enhancing Agent Indication: Endocardial border delineation Agent(s) / Amount(s) Used: Definity 2 cc LV Diastology E/A Ratio 0.84 Mitral Valve MV A Velocity 107.00 (40-130 cm/s) Left Ventricle Left atrium is mildly enlarged, left ventricle is normal size, mild concentric left ventricular hypertrophy, visually estimated ejection fraction 55% with no regional wall motion abnormality. Endocardial surfaces are poorly visualized, grade 1 diastolic dysfunction seen without tissue Doppler evidence of raise left atrial pressure. Right Ventricle Right atrium and right ventricular mildly enlarged with normal contractility. Aortic Valve Aortic valve is minimally thickened and fibrosed, there is no aortic stenosis or aortic insufficiency. Mitral Valve Mitral valve is grossly normal, there is mild mitral regurgitation. Tricuspid Valve Tricuspid valve is grossly normal, there is mild tricuspid regurgitation, calculated right ventricular systolic pressure is 43 mmHg. Pulmonic Valve Pulmonic valve is poorly visualized. Great Vessels Aortic root is normal size. Pericardium No significant pericardial effusion noted. Conclusion 1. Mild biatrial enlargement, normal left ventricular size, mild concentric left ventricular hypertrophy, visually estimated ejection fraction 55% with no regional wall motion abnormality, grade 1 diastolic dysfunction seen without tissue Doppler evidence of raise left atrial pressure, endocardial surfaces are poorly visualized. 2. Mildly enlarged right ventricle with normal contractility. 3. Mild mitral and tricuspid regurgitation, calculated right ventricular systolic pressure is 43 mmHg. 4. No significant pericardial effusion noted. Electronically signed by : Farrukh Cartagena, 11/11/2019 06:00:21
[2019-11-11 06:21] LABS: Calcium 8.4 mg/dL (8.5-10.1)
[2019-11-11 07:17] LABS: Lymphocytes % 7 % (10-50); Monocytes % 2 % (2-9); Neutrophils % 90 % (42-76); Total Cells Counted 100
[2019-11-11 07:18] LABS: Hypochromasia 1+
--- NOTE | 2019-11-11 07:24 | Progress Note ---
Internal Medicine - PN: Subj *Date: 11/11/19 *Time: 07:20 Interval history: SHe was very anxious yesterday afternoon insisting on going home, but finally calmed down and rested well through the night and was oriented and appropriate. She remains on Vapotherm at 40% Exam Vital signs and Labs for Last 24 Hours: Temp Pulse Resp BP Pulse Ox 97.5 F L 70 18 129/77 93 L 11/11/19 04:00 11/11/19 06:00 11/11/19 06:00 11/11/19 06:00 11/11/19 06:00 Laboratory Results - last 24 hr 11/09/19 13:17: Vent Rate Not Reportable, PEEP Not Reportable 11/10/19 05:21: Total Counted 100, Neutrophils % (Manual) 89 H, Lymphocytes % (Manual) 5 L, Monocytes % (Manual) 5, Eosinophils % (Manual) 1, Platelet Estimate Normal, Hypochromasia 1+ 11/10/19 20:30: POC Glucose 320 H* 11/11/19 05:32: WBC 9.1, RBC 3.60 L, Hgb 10.9 L, Hct 34.3 L, MCV 95.1, MCH 30.2, MCHC 31.8, RDW 13.9, Plt Count 173, MPV 8.1, Neut % (Auto) 89.4 H, Lymph % (Auto) 6.5 L, Wilkin % (Auto) 2.8, Eos % (Auto) 1.1, Baso % (Auto) 0.2, Neut # (Auto) 8.1 H, Lymph # (Auto) 0.6 L, Wilkin # (Auto) 0.3, Eos # (Auto) 0.1, Baso # (Auto) 0.0 11/11/19 05:32: Sodium 136, Potassium 5.0, Chloride 95 L, Carbon Dioxide 42 H*, Anion Gap 4.0 L, BUN 30 H D, Creatinine 1.45 H, Estimated Creat Clear 71, Estimated GFR 36 L, Est GFR ( Amer) 44 L, Glucose 158 H, Calcium 8.4 L 11/11/19 05:35: POC Glucose 163 H I & O for Last 24 hours: Intake & Output 11/08/19 11/09/19 11/10/19 11/11/19 11:59 11:59 11:59 11:59 Intake Total 470 / 470 490 / 490 Output Total 2014 Balance -1545 / -1545 490 / 490 Weight 252 lb 3.341 oz 252 lb 3.341 oz Narrative: Resting comfortably. Resp easy and unlaborred. BS diminished but o/w clear. Ext no edema. Assessment and Plan (1) Acute and chronic respiratory failure with hypercapnia Current visit: Yes Status: Acute Category: Medical Code(s): J96.22 - Acute and chronic respiratory failure with hypercapnia (2) Acute exacerbation of chronic obstructive pulmonary disease (COPD) Current visit: Yes Status: Acute Category: Medical Code(s): J44.1 - Chronic obstructive pulmonary disease with (acute) exacerbation (3) COPD (chronic obstructive pulmonary disease) Current visit: No Status: Acute Qualifiers: COPD type: emphysema Emphysema type: unspecified Qualified Code(s): J43.9 - Emphysema, unspecified Category: Medical Code(s): J44.9 - Chronic obstructive pulmonary disease, unspecified (4) Community acquired pneumonia Current visit: No Status: Acute Qualifiers: Laterality: right Lung location: upper lobe of lung Category: Medical Code(s): J18.9 - Pneumonia, unspecified organism (5) Seizures Current visit: No Status: Chronic Category: Medical Code(s): R56.9 - Unspecified convulsions (6) Tobacco abuse disorder Current visit: No Status: Chronic Category: Medical Code(s): Z72.0 - Tobacco use (7) Anxiety and depression Current visit: Yes Status: Acute Category: Medical Code(s): F41.9 - Anxiety disorder, unspecified; F32.9 - Major depressive disorder, single episode, unspecified (8) Renal insufficiency Current visit: Yes Status: Acute Category: Medical Code(s): N28.9 - Disorder of kidney and ureter, unspecified - Assessment and plan all Dx Assessment and Plan for all problems:: Repeat CXR. Continue to wean Vapotherm
--- NOTE | 2019-11-12 08:16 | Progress Note ---
<Tatiana Silva - Last Filed: 11/12/19 08:13> Internal Medicine - PN: Subj *Date: 11/12/19 *Time: 08:13 Interval history: Patient states she is feeling better today. She has less shortness of breath and less wheezing. She wants to go home although she is still on the Vapotherm. She states she rested better last night and ate a good breakfast this morning. Exam Vital signs and Labs for Last 24 Hours: Temp Pulse Resp BP Pulse Ox 97.6 F 65 18 162/79 H 93 L 11/12/19 04:00 11/12/19 06:21 11/12/19 04:00 11/12/19 04:00 11/12/19 06:21 Laboratory Results - last 24 hr 11/11/19 12:35: POC Glucose 214 H 11/11/19 16:50: POC Glucose 104 11/11/19 20:49: POC Glucose 246 H 11/12/19 06:10: POC Glucose 186 H I & O for Last 24 hours: Intake & Output 11/09/19 11/10/19 11/11/19 11/12/19 11:59 11:59 11:59 11:59 Intake Total 470 / 470 880 / 880 370 / 370 Output Total 2014 Balance -1545 / -1545 880 / 880 -1605 / -1605 Weight 252 lb 3.341 oz 252 lb 3.341 oz 248 lb Microbiology Reports for the Last 24 Hours: Microbiology 11/09/19 12:31 Blood Blood Culture - Preliminary NO GROWTH AFTER 48 HOURS 11/09/19 12:31 Blood Blood Culture - Preliminary NO GROWTH AFTER 48 HOURS - Constitutional no acute distress - *Routine Respiratory Exam Present: decreased breath sounds, wheezes (faint). Absent: rales - *Routine Cardiovascular Exam Present: RRR - *Routine Abdominal Exam Present: soft, normoactive bowel sounds. Absent: tenderness - *Routine Extremities Exam Present: edema (trace). Absent: cyanosis, clubbing - *Routine Skin Exam Present: warm. Absent: rash - *Routine Neurological Exam Present: alert, oriented X3 Assessment and Plan (1) Acute and chronic respiratory failure with hypercapnia Current visit: Yes Status: Acute Category: Medical Code(s): J96.22 - Acute and chronic respiratory failure with hypercapnia (2) Acute exacerbation of chronic obstructive pulmonary disease (COPD) Current visit: Yes Status: Acute Category: Medical Code(s): J44.1 - Chronic obstructive pulmonary disease with (acute) exacerbation (3) COPD (chronic obstructive pulmonary disease) Current visit: No Status: Acute Qualifiers: COPD type: emphysema Emphysema type: unspecified Qualified Code(s): J43.9 - Emphysema, unspecified Category: Medical Code(s): J44.9 - Chronic obstructive pulmonary disease, unspecified (4) Community acquired pneumonia Current visit: No Status: Acute Qualifiers: Laterality: right Lung location: upper lobe of lung Category: Medical Code(s): J18.9 - Pneumonia, unspecified organism (5) Seizures Current visit: No Status: Chronic Category: Medical Code(s): R56.9 - Unspecified convulsions (6) Tobacco abuse disorder Current visit: No Status: Chronic Category: Medical Code(s): Z72.0 - Tobacco use (7) Anxiety and depression Current visit: Yes Status: Acute Category: Medical Code(s): F41.9 - Anxiety disorder, unspecified; F32.9 - Major depressive disorder, single episode, unspecified (8) Renal insufficiency Current visit: Yes Status: Acute Category: Medical Code(s): N28.9 - Disorder of kidney and ureter, unspecified - Assessment and plan all Dx Assessment and Plan for all problems:: We will stop Vapotherm. If she does well on nasal oxygen, she can possibly be discharged later on today. <Alejandro Figueroa - Last Filed: 11/12/19 13:40> Internal Medicine - PN: Subj *Date: 11/12/19 *Time: 13:40 Exam Vital signs and Labs for Last 24 Hours: Temp Pulse Resp BP Pulse Ox 97.9 F 65 17 121/46 L 89 L 11/12/19 11:58 11/12/19 11:58 11/12/19 11:58 11/12/19 11:58 11/12/19 11:58 Laboratory Results - last 24 hr 11/11/19 16:50: POC Glucose 104 11/11/19 20:49: POC Glucose 246 H 11/12/19 06:10: POC Glucose 186 H 11/12/19 11:24: POC Glucose 244 H I & O for Last 24 hours: Intake & Output 11/10/19 11/11/19 11/12/19 11/13/19 11:59 11:59 11:59 11:59 Intake Total 470 / 470 880 / 880 520 / 520 Output Total 2014 Balance -1545 / -1545 880 / 880 -1455 / -1455 Weight 252 lb 3.341 oz 252 lb 3.341 oz 248 lb Microbiology Reports for the Last 24 Hours: Microbiology 11/09/19 12:31 Blood Blood Culture - Preliminary NO GROWTH AFTER 48 HOURS 11/09/19 12:31 Blood Blood Culture - Preliminary NO GROWTH AFTER 48 HOURS Assessment and Plan (1) Acute and chronic respiratory failure with hypercapnia Current visit: Yes Status: Acute Category: Medical Code(s): J96.22 - Acute and chronic respiratory failure with hypercapnia (2) Acute exacerbation of chronic obstructive pulmonary disease (COPD) Current visit: Yes Status: Acute Category: Medical Code(s): J44.1 - Chronic obstructive pulmonary disease with (acute) exacerbation (3) COPD (chronic obstructive pulmonary disease) Current visit: No Status: Acute Qualifiers: COPD type: emphysema Emphysema type: unspecified Qualified Code(s): J43.9 - Emphysema, unspecified Category: Medical Code(s): J44.9 - Chronic obstructive pulmonary disease, unspecified (4) Community acquired pneumonia Current visit: No Status: Acute Qualifiers: Laterality: right Lung location: upper lobe of lung Category: Medical Code(s): J18.9 - Pneumonia, unspecified organism (5) Seizures Current visit: No Status: Chronic Category: Medical Code(s): R56.9 - Unspecified convulsions (6) Tobacco abuse disorder Current visit: No Status: Chronic Category: Medical Code(s): Z72.0 - Tobacco use (7) Anxiety and depression Current visit: Yes Status: Acute Category: Medical Code(s): F41.9 - Anxiety disorder, unspecified; F32.9 - Major depressive disorder, single episode, unspecified (8) Renal insufficiency Current visit: Yes Status: Acute Category: Medical Code(s): N28.9 - Disorder of kidney and ureter, unspecified - Assessment and plan all Dx Assessment and Plan for all problems:: Patient seen and examined this morning. Concur with above assessment and plan.
--- NOTE | 2019-11-12 21:35 | Discharge Summary ---
General - General Admission date:: 11/09/19 Discharge date: 11/12/19 HPI HPI: Ms. Gamez is a 64-year-old female with a history of severe COPD O2 dependent, tobacco addiction, depression anxiety, hyperlipidemia, who presented to [facility] emergency room with progressive shortness of breath. Her breathing had become more difficult since 11/06/2019. She also described a congestive cough. She received DuoNeb treatments in route to the hospital. She denied having any chest pain. With evaluation in the emergency room EKG was noted to have no changes. She was given 125 mg of Solu-Medrol and Zofran IV as well as started on BiPAP. She was also given 2 g of magnesium IV push. Vital signs stabilized with O2 saturation at 93% on BiPAP. She continually denied any chest pain and was started on Levaquin IV. Her white blood cell count was elevated at 12.7 with ABG showing a respiratory acidosis. Hospital Course Hospital Course: The patient's initial chest x-ray showed nothing acute. She was started on BiPAP and Levaquin. She was also started on steroids and duo nebs. The patient was switched from BiPAP to Vapotherm and began improving. She requested her De La Torre catheter be removed and once this was removed, she began resting well. Her Vapotherm was weaned and an echo was ordered. It showed an EF of 55% with grade 1 diastolic dysfunction. The patient began feeling very anxious and wanted to go home. She finally calmed down and rested better. A repeat chest x-ray was ordered and it showed nothing acute. The patient began having less shortness of breath and less wheezing. She was eating well and resting better. Her blood culture showed no growth. Her Vapotherm was stopped and she was started on nasal oxygen. She was able to maintain her oxygen saturations between 89 and 94%. Other than feeling weak, she had no complaints and was eager to go home. Dr. Figueroa discussed at length about her continued smoking and she stated she had quit for good. She will be discharged home and will follow-up in the office in 4 days for recheck. Objective Vital signs: Temp Pulse Resp BP Pulse Ox 97.9 F 65 17 86/48 L 89 L 11/12/19 11:58 11/12/19 11:58 11/12/19 11:58 11/12/19 15:04 11/12/19 11:58 Narrative: - Constitutional no acute distress - *Routine Respiratory Exam Present: decreased breath sounds, wheezes (faint). Absent: rales - *Routine Cardiovascular Exam Present: RRR - *Routine Abdominal Exam Present: soft, normoactive bowel sounds. Absent: tenderness - *Routine Extremities Exam Present: edema (trace). Absent: cyanosis, clubbing - *Routine Skin Exam Present: warm. Absent: rash - *Routine Neurological Exam Present: alert, oriented X3 Results Labs on day of discharge: Labs from last 24 hours 11/12/19 11/12/19 11/11/19 11:24 06:10 20:49 POC Glucose 244 H 186 H 246 H Preliminary micro results at discharge 11/09/19 12:31 Blood Culture - Preliminary Blood NO GROWTH AFTER 48 HOURS 11/09/19 12:31 Blood Culture - Preliminary Blood NO GROWTH AFTER 48 HOURS DS: Diagnosis - Discharge Diagnosis (1) Acute and chronic respiratory failure with hypercapnia Status: Acute (2) Acute exacerbation of chronic obstructive pulmonary disease (COPD) Status: Acute (3) COPD (chronic obstructive pulmonary disease) Status: Acute (4) Community acquired pneumonia Status: Acute (5) Seizures Status: Chronic (6) Tobacco abuse disorder Status: Chronic (7) Anxiety and depression Status: Acute (8) Renal insufficiency Status: Acute Discharge Plan - Patient Discharge Instructions ACTIVITY: Continue current activity DIET: continue same diet Additional Instructions: NO SMOKING Patient Instructions: Chronic Obstructive Pulmonary Disease, Respiratory Failure - Follow up Plan Follow up with: Alejandro Figueroa MD [Staff Physician] - 11/16/19 (in [facility]) Disposition: Home, Self-Snf Medications: Home Medications Medication Instructions Recorded Confirmed Type Gabapentin [Neurontin 600mg 600 mg PO TID 05/01/18 11/09/19 History tablet] Isosorbide Mononitrate [Imdur 60mg 60 mg PO DAILY 05/01/18 11/09/19 History ER tablet] Metoprolol Tartrate [Lopressor 25 mg PO BID 05/01/18 11/09/19 History 25mg tablet] Omeprazole [Omeprazole 20mg Tab] 20 mg PO DAILY 05/01/18 11/09/19 History Spironolactone [Spironolactone 25 mg PO BID 05/01/18 11/09/19 History 25mg Tablet] Venlafaxine HCl [Venlafaxine HCl 150 mg PO DAILY 05/01/18 11/09/19 History ER] Benzonatate [Benzonatate 200mg Cap] 200 mg PO TIDP PRN 06/05/18 11/09/19 History Ipratropium/Albuterol Sulfate 3 ml IH TID 06/05/18 11/10/19 History [Duoneb 3mL neb] albuterol sulfate 90 mcg/actuation 1 puff INHALATION Q6H PRN 06/02/19 11/09/19 History aerosol inhaler aspirin 81 mg tablet,delayed 81 mg PO DAILY 06/02/19 11/09/19 History release atorvastatin 20 mg tablet 20 mg PO DAILY 06/02/19 11/09/19 History fluticasone fur. 100 mcg-umeclid 1 inh INHALATION DAILY 06/02/19 11/09/19 History 62.5 mcg-vilant 25 mcg inhalat.powder furosemide 40 mg tablet 40 mg PO DAILY 06/02/19 11/09/19 History nitroglycerin 0.4 mg sublingual 0.4 mg SUBLINGUAL Q5-15M PRN 06/02/19 11/09/19 History tablet ALPRAZolam [Xanax 1mg tab] 1 mg PO TIDP PRN 11/10/19 11/10/19 History Potassium Chloride 20 meq PO BID 11/10/19 11/10/19 History Venlafaxine HCl [Venlafaxine HCl 75 mg PO DAILY 11/10/19 11/10/19 History ER] levETIRAcetam [Levetiracetam] 750 mg PO BID 11/10/19 11/10/19 History levoFLOXacin [Levaquin 500mg 500 mg PO DAILY #7 tab 11/12/19 Rx tab] predniSONE [Prednisone 20mg 20 mg PO BID #14 tab 11/12/19 Rx Tab] Prescriptions/Medication Reconciliation: New levoFLOXacin [Levaquin 500mg tab] 500 mg PO DAILY #7 tab predniSONE [Prednisone 20mg Tab] 20 mg PO BID #14 tab Continued furosemide 40 mg tablet 40 mg PO DAILY atorvastatin 20 mg tablet 20 mg PO DAILY fluticasone fur. 100 mcg-umeclid 62.5 mcg-vilant 25 mcg inhalat.powder 1 inh INHALATION DAILY aspirin 81 mg tablet,delayed release 81 mg PO DAILY nitroglycerin 0.4 mg sublingual tablet 0.4 mg SUBLINGUAL Q5-15M PRN PRN Reason: Chest Pain albuterol sulfate 90 mcg/actuation aerosol inhaler 1 puff INHALATION Q6H PRN PRN Reason: COPD Gabapentin [Neurontin 600mg tablet] 600 mg PO TID Isosorbide Mononitrate [Imdur 60mg ER tablet] 60 mg PO DAILY Metoprolol Tartrate [Lopressor 25mg tablet] 25 mg PO BID Omeprazole [Omeprazole 20mg Tab] 20 mg PO DAILY levETIRAcetam [Levetiracetam] 750 mg PO BID Potassium Chloride 20 meq PO BID ALPRAZolam [Xanax 1mg tab] 1 mg PO TIDP PRN PRN Reason: Anxiety Venlafaxine HCl [Venlafaxine HCl ER] 75 mg PO DAILY Spironolactone [Spironolactone 25mg Tablet] 25 mg PO BID Venlafaxine HCl [Venlafaxine HCl ER] 150 mg PO DAILY Benzonatate [Benzonatate 200mg Cap] 200 mg PO TIDP PRN PRN Reason: Cough Ipratropium/Albuterol Sulfate [Duoneb 3mL neb] 3 ml IH TID - Problem Reconciliation Problems Reviewed?: Yes
== END 2019-11-12 15:00 | disposition home or self-care (01) | DRG 189 ==
LOC: ER 12:15 → 2ND 14:10
PROVIDERS: ADMIT Family Medicine; ATTEND Family Medicine
CPT/HCPCS: 36415; 71010; 71045; 80048; 80053; 81001; 82803; 82962; 83605; 83735; 83880; 84484; 85007; 85025; 85610; 85730; 87040; 87275; 87276; 93005; 93306; 94640; 94760; 94761; 96365; 96367; 96375; 99285; J1956; J2405; Q9957